=== PATIENT | female | born 1970 | race Caucasian/White ===

== ENCOUNTER 2016-09-21 09:38 | Emergency (ER) | payer OTHER ==
[~2016-09-21] VITALS: Wt 100.0 kg
[~2016-09-21 09:38] MED LIST: ALBU18HF INHALATION; ASP81 PO; AZIT250T94 PO; CITA20TA6 PO; CYCL-319 PO; GLIM4TAB PO; HYD25 PO; IBUP-1542 PO; LORA5SOL PO; METF500T PO; METO-53 PO; NIT4 SL; NPH,100V SC; OMEG-135 PO; OMEP20CA16 PO; PROM5SYR2 PO; ZOC20 PO
[2016-09-21 10:28] LABS: BASOPHIL # 0.1 10^3/ul (0.0-0.1); BASOPHILS % 0.7 % (0.0-2.0); EOSINOPHILS # 0.2 10^3/ul (0.0-0.5); EOSINOPHILS % 1.1 % (0.0-7.0); HEMATOCRIT 37.9 % (37.0-47.0); HEMOGLOBIN 12.8 g/dl (12.0-16.0); LYMPHOCYTES # 3.8 10^3/ul (0.8-2.9); LYMPHOCYTES % 24.4 % (15.0-51.0); MEAN CORPUSCULAR HGB CONC 33.8 g/dl (32.0-37.0); MEAN CORPUSCULAR VOLUME 91.6 fl (82.0-101.0); MEAN PLATELET VOLUME 11.4 fl (7.4-10.4); MONOCYTE # 0.8 10^3/ul (0.3-0.9); NEUTROPHIL # 10.6 10^3/ul (1.6-7.5); NEUTROPHILS % 68.8 % (39.0-77.0); PLATELET COUNT 182 10^3/UL (140-440); RED BLOOD COUNT 4.14 10^6/ul (4.20-5.40); RED CELL DISTRIBUTION WIDTH 13.8 % (11.5-14.5); UNCORRECTED WBC 15.4 10^3/ul (4.8-10.8); WHITE BLOOD COUNT 15.4 10^3/ul (4.8-10.8)
[2016-09-21 10:30] LABS: CHLORIDE 98 mmol/L (97-110); SODIUM 142 mmol/L (135-144)
[2016-09-21 10:31] LABS: POTASSIUM 4.2 mmol/L (3.5-5.1)
[2016-09-21 10:33] LABS: ANION GAP 18 (8-16); CARBON DIOXIDE 30 mmol/L (21-31); CREATININE 0.55 mg/dl (0.44-1.00); INR 0.87; PARTIAL THROMBOPLASTIN TIME 28.1 Sec (25.0-35.0); PROTIME 11.8 Sec (12.2-14.2); PT RATIO 0.9
[2016-09-21 10:34] LABS: BLOOD UREA NITROGEN 15 mg/dl (7-20); CALCIUM 9.6 mg/dl (8.4-10.2); GLUCOSE 268 mg/dl (70-220)
[2016-09-21 10:37] LABS: CONDITION 1
--- NOTE | 2016-09-21 10:43 | RADRPT ---
PROCEDURE: XR Chest. CLINICAL INDICATION: chest pain TECHNIQUE: Single frontal view of the chest was obtained COMPARISON: 05/23/2016 FINDINGS: The heart and mediastinum are within normal limits. The lungs are clear. There is no pleural effusion or pneumothorax. RPTAT: AA IMPRESSION: No acute disease. .Olegario Martini MD, MD Date Time Electronically viewed and signed by .Olegario Martini MD, on 09/21/2016 10:43 .S/
[2016-09-21 10:49] LABS: TROPONIN-I < 0.012 ng/ml (0.00-0.12)
[2016-09-21] MEDS ORDERED: KETOROLAC 15 MG INJ IV STA (10:51)
[2016-09-21] MEDS ORDERED: SOD CHLORIDE 0.9% 1,000 ML IV STA (11:13)
--- NOTE | 2016-09-21 11:29 | ERD ---
ER Documentation Chief Complaint Date/Time DATE: 09/21/16 TIME: 11:27 Chief Complaint cough and congestion for the past few days intermittent fevers. HPI This is a 46-year-old female presents to the emergency room for evaluation of cough, congestion for the past 48 hours. She also states that she has had chills and body aches. The patient came to the ER today for evaluation. This patient denies taking any medication for this and denies any aggravating or relieving factors for her symptoms ROS All systems reviewed and are negative except as per history of present illness. Medications Home Meds Active Scripts Albuterol Sulfate* (Ventolin HFA*) 18 Gm Hfa.aer.ad, 2 PUFF INHALATION Q4H, #1 INHALER Prov:GENARO JARQUIN MD 05/23/16 Ibuprofen* (Motrin*) 600 Mg Tab, 600 MG PO Q6, #20 TAB Prov:GENARO JARQUIN MD 05/23/16 Loratadine* (Claritin*) 1 Mg/Ml Syrup, 5 MG PO DAILY, #1 BOTTLE Prov:PILAR RIOS NP 07/28/15 Nitroglycerin* (Nitrostat*) 0.4 Mg Tab.subl, 0.4 MG SL Q5MIN Y for CHEST PAIN, # 30 BOTTLE 3 dose max Prov:ROSITA KENDRICK 06/01/15 Aspirin (Aspirin) 81 Mg Chew, 81 MG PO DAILY for 30 Days Prov:ROSITA KENDRICK 06/01/15 Simvastatin (Simvastatin) 20 Mg Tablet, 20 MG PO HS for 30 Days Prov:ROSITA KENDRICK 06/01/15 Reported Medications Omeprazole* (Omeprazole*) 20 Mg Capsule.dr, 20 MG PO BID, CAP 07/06/14 Cyclobenzaprine Hcl* (Cyclobenzaprine Hcl*) 10 Mg Tablet, 10 MG PO TID, TAB 07/06/14 Citalopram Hydrobromide* (Citalopram Hydrobromide*) 20 Mg Tablet, 20 MG PO DAILY , TAB 07/06/14 Hydrochlorothiazide* (Hydrochlorothiazide*) 25 Mg Tab, 25 MG PO DAILY, TAB 07/06/14 Nph, Human Insulin Isophane (Humulin N) 100 Units/Ml Vial, 10 UNIT SC DAILY, VIAL 07/06/14 Metformin Hcl (Glucophage) 500 Mg Tablet, 1000 MG PO BID 10/30/13 Glimepiride* (Glimepiride*) 4 Mg Tablet, 4 MG PO BID 10/29/13 Fish Oil* (Fish Oil*) 1,000 Mg Cap, 1000 MG PO BID, CAP 10/29/13 Metoprolol (Lopressor) 50 Mg Tablet, 50 MG PO BID 10/29/13 Discontinued Scripts Promethazine HCl/Codeine (Prometh-Codein 6.25-10 mg/5 ml) 5 Ml Syrup, 5 ML PO QID for 4 Days 6 ounces Prov:GENARO JARQUIN MD 05/23/16 Azithromycin* (Zithromax*) 250 Mg Tablet, 250 MG PO .ZPACK DIRECTED, #6 TAB TAKE 500 MG (2 TABS) THE FIRST DAY THEN 250 MG (1 TAB) DAYS 2-5 Prov:GENARO JARQUIN MD 05/23/16 Allergies Allergies: Coded Allergies: No Known Allergy (Unverified , 07/09/15) PMhx/Soc History of Surgery: No Anesthesia Reaction: No Hx Neurological Disorder: No Hx Respiratory Disorders: No Hx Cardiac Disorders: No Hx Psychiatric Problems: Yes (ANXIETY, DEPRESSION) Hx Alcohol Use: Yes (OCCASIONAL) Hx Substance Use: No Hx Tobacco Use: Yes (OCCASIONAL) Smoking Status: Former smoker Physical Exam Vitals Vital Signs Date Time Temp Pulse Resp B/P Pulse Ox O2 Delivery O2 Flow Rate FiO2 09/21/16 09:43 99.8 115 20 185/110 97 Physical Exam INITIAL VITAL SIGNS: Reviewed by me GENERAL: The patient is well developed and appropriate for usual state of health in no apparent distress HEENT: Bilateral nasal congestion, pharyngeal erythema with no visible exudate, pupils equal, round, and reactive to light. EOMI. There is no scleral icterus. NECK: C-spine is soft and supple, there is no meningismus. There is no cervical lymphadenopathy. LUNGS: Clear to auscultation bilaterally. There are no rales, wheezes or rhonchi. HEART: Regular rate and rhythm, no murmurs, clicks, rubs or gallops. ABDOMEN: Soft, non-tender, non-distended. There are bowel sounds in all four quadrants. No rebound or guarding. EXTREMITIES: There is no peripheral cyanosis or edema. No focal swelling or erythema. NEUROLOGICAL: The patient moves all four extremities with 5/5 strength. Cranial nerves II - XII are intact. Normal gait. Alert and oriented SKIN: There is no apparent rash or petechiae. HEME/LYMPHATIC: There is no evidence of excessive bruising or lymphedema. PSYCHIATRIC: The patient does not appear anxious or depressed. Result Diagram: 09/21/16 1013 09/21/16 1013 Results 24 hrs Laboratory Tests Test 09/21/16 10:13 Activated Partial Thromboplast Time 28.1Sec Anion Gap 18 Basophils # 0.110^3/ul Basophils % 0.7% Blood Morphology Comment Blood Urea Nitrogen 15mg/dl Calcium Level 9.6mg/dl Carbon Dioxide Level 30mmol/L Chloride Level 98mmol/L Creatinine 0.55mg/dl Eosinophils # 0.210^3/ul Eosinophils % 1.1% Glucose Level 268mg/dl Hematocrit 37.9% Hemoglobin 12.8g/dl INR International Normalized Ratio 0.87 Lymphocytes # 3.810^3/ul Lymphocytes % 24.4% Mean Corpuscular Hemoglobin 31.0pg Mean Corpuscular Hemoglobin Concent 33.8g/dl Mean Corpuscular Volume 91.6fl Mean Platelet Volume 11.4fl Monocytes # 0.810^3/ul Monocytes % 5.0% Neutrophils # 10.610^3/ul Neutrophils % 68.8% Nucleated Red Blood Cells # 0.010^3/ul Nucleated Red Blood Cells % 0.0/100WBC Platelet Count 92323^3/UL Potassium Level 4.2mmol/L Prothrombin Time 11.8Sec Prothrombin Time Ratio 0.9 Red Blood Count 4.1410^6/ul Red Cell Distribution Width 13.8% Sodium Level 142mmol/L Troponin I < 0.012ng/ml White Blood Count 15.410^3/ul Current Medications Medications (Trade) Dose Ordered Sig/Samir Route PRN Reason Start Time Stop Time Status Last Admin Dose Admin Ketorolac Tromethamine 15 mg 15 mg ONCE STAT IV 09/21/16 10:51 09/21/16 10:52 DC 09/21/16 11:09 Sodium Chloride (NS) 1,000 ml @ 1,000 mls/hr Q1H STAT IV 09/21/16 11:13 09/21/16 12:12 09/21/16 11:17 Procedures/MDM EKG: Rate/Rhythm: [Normal Sinus Rhythm] QRS, ST, T-waves: [No changes consistent w/ acute ischemia] Impression: [No evidence of ischemia or arrhythmia] Chest X-ray 1V Interpreted by me: Soft Tissue: No acute abnormalities Bones: No acute abnormalities Mediastinum/Cardiac Silhouette/Lungs: [No acute abnormalities] This 46-year-old female presents to the emergency room for evaluation of nasal congestion, body aches, generalized weakness and a dry cough. This patient did have nasal congestion on my examination. Lab work was drawn including EKG and troponin which are normal. Chest x-ray is clear. The patient is not hypoxic, and fluids negative. She was given 1 L of fluids and 50 mg IV of Toradol. A pulmonary evaluation patient states that her body aches have resolved. She is in no acute distress and will be discharged home with a prescription for Motrin , and Robitussin for cough. Patient presents with straightforward URI symptoms. Clinical exam is not consistent with pneumonia, sepsis or significant bacterial disease. Patient is well hydrated, non-toxic and appropriate for outpatient, supportive care. Smoking Cessation Therapy: Pt. was lectured for greater than 3 minutes on the health risks of continued smoking and the benefits of cessation. Departure Diagnosis: Primary Impression: Influenza-like illness Additional Impressions: Cough Tobacco abuse counseling Tobacco abuse Condition: Stable SALEEM SUAREZ DO Sep 21, 2016 11:29
[2016-09-21] MEDS ORDERED: UDROBDM PO (11:30)
[2016-09-21] MEDS ORDERED: IBUP800T25 PO (11:30)
[2016-09-21 12:54] VITALS: BP 144/76; PULSE 88; RESP 18; TEMP 98.6
== END 2016-09-21 12:55 | disposition home or self-care (01) ==
LOC: E/R 09:38
DX: R05 Cough (principal); R09.81 Nasal congestion; R50.9 Fever, unspecified; F17.200 Nicotine dependence, unspecified, uncomplicated; I10 Essential (primary) hypertension; E11.9 Type 2 diabetes mellitus without complications; R07.9 Chest pain, unspecified; Z71.6 Tobacco abuse counseling; Z79.82 Long term (current) use of aspirin; Z79.4 Long term (current) use of insulin
CPT/HCPCS: 36415; 71010; 80048; 84484; 85025; 85610; 85730; 87400; 96374; J1885; J7030; Z7502; 93005

== ENCOUNTER 2016-11-29 16:52 | Emergency (ER) | payer OTHER ==
[~2016-11-29] VITALS: Wt 100.0 kg
[~2016-11-29 16:52] MED LIST changes: -ASP81 PO; +ASPI81TA3 PO; -AZIT250T94 PO; +IBUP800T25 PO; -PROM5SYR2 PO; +UDROBDM PO
[2016-11-29] MEDS ORDERED: ONDANSETRON 4 MG INJ IV STA (17:58)
[2016-11-29] MEDS ORDERED: KETOROLAC 30 MG INJ IV STA (17:58)
[2016-11-29 18:18] LABS: ADD SCAN DIFF NO
[2016-11-29 18:23] LABS: HEMATOCRIT 38.2 % (37.0-47.0); HEMOGLOBIN 12.7 g/dl (12.0-16.0); MEAN CORPUSCULAR HEMOGLOBIN 30.7 pg (29.0-33.0); MEAN CORPUSCULAR HGB CONC 33.2 g/dl (32.0-37.0); MEAN CORPUSCULAR VOLUME 92.3 fl (82.0-101.0); MEAN PLATELET VOLUME 11.6 fl (7.4-10.4); PLATELET COUNT 241 10^3/UL (140-415); RED BLOOD COUNT 4.14 10^6/ul (4.20-5.40); RED CELL DISTRIBUTION WIDTH 13.3 % (11.5-14.5); WHITE BLOOD COUNT 16.7 10^3/ul (4.8-10.8)
[2016-11-29 18:26] LABS: ADD UMIC YES; URINE BILIRUBIN (Dip) NEGATIVE (NEGATIVE); URINE BLOOD (Dip) 3+ (NEGATIVE); URINE COLOR YELLOW (YELLOW); URINE GLUCOSE (Dip) NEGATIVE (NEGATIVE); URINE KETONES (Dip) NEGATIVE (NEGATIVE); URINE LEUKOCYTE ESTERASE (Dip) 3+ (NEGATIVE); URINE NITRITE (Dip) POSITIVE (NEGATIVE); URINE TOTAL PROTEIN (Dip) 2+ (NEGATIVE); URINE UROBILINOGEN (Dip) 0.2 E.U./dL (0.1-1.0)
--- NOTE | 2016-11-29 18:29 | ERD ---
ER Documentation Chief Complaint Date/Time DATE: 11/29/16 TIME: 18:22 Chief Complaint COUGH AND CONGESTION AND RIGHT EAR PAIN AND SORE THROAT FOR FEW DAYS HPI This pleasant 46-year-old female presents to emergency department today with right upper abdominal pain radiating to her back, fever, cough, sore throat and otalgia. Cough is nonproductive, patient is able to eat and drink without deficit reports pain with swallowing, and postnasal drip. Patient reports symptoms have been present for 3 days. Patient is a diabetic, with hypertension , and gastroesophageal reflux disease. Patient states she is taking all routine medication as prescribed, denies chest pain, palpitations, shortness of breath, or dizziness. Patient denies dysuria, constipation, or diarrhea. ROS All systems reviewed and are negative except as per history of present illness. Medications Home Meds Active Scripts Cephalexin* (Keflex*) 500 Mg Capsule, 500 MG PO TID for 10 Days, CAP Prov:JOCY,JESUS 11/29/16 Ondansetron (Ondansetron Odt) 4 Mg Tab.rapdis, 4 MG PO Q6H Y for NAUSEA AND/OR VOMITING, #10 TAB Prov:JOCY,JESUS 11/29/16 Ibuprofen* (Motrin*) 600 Mg Tab, 600 MG PO Q6H Y for PAIN AND OR ELEVATED TEMP, #30 TAB Prov:OJCY,JESUS 11/29/16 Guaifenesin-Dextromethorphan* (Robitussin* DM) 100MG/10MG/5ML Syrup, 10 ML PO Q6H Y for COUGH, #30 ML Prov:SALEEM SUAREZ DO 09/21/16 Ibuprofen* (Motrin*) 800 Mg Tab, 800 MG PO Q6H Y for PAIN AND OR ELEVATED TEMP, #30 TAB Prov:SALEEM SUAREZ DO 09/21/16 Albuterol Sulfate* (Ventolin HFA*) 18 Gm Hfa.aer.ad, 2 PUFF INHALATION Q4H, #1 INHALER Prov:GENARO JARQUIN MD 05/23/16 Ibuprofen* (Motrin*) 600 Mg Tab, 600 MG PO Q6, #20 TAB Prov:GENARO JARQUIN MD 05/23/16 Loratadine* (Claritin*) 1 Mg/Ml Syrup, 5 MG PO DAILY, #1 BOTTLE Prov:PILAR RIOS WHEAT WASHER 07/28/15 Nitroglycerin* (Nitrostat*) 0.4 Mg Tab.subl, 0.4 MG SL Q5MIN Y for CHEST PAIN, # 30 BOTTLE 3 dose max Prov:GWEN KENDRICKNELL 06/01/15 Aspirin (Aspirin) 81 Mg Chew, 81 MG PO DAILY for 30 Days Prov:ROSITA KENDRICK 06/01/15 Simvastatin (Simvastatin) 20 Mg Tablet, 20 MG PO HS for 30 Days Prov:TITOKIPGWEN GuerraROSITA 06/01/15 Reported Medications Omeprazole* (Omeprazole*) 20 Mg Capsule.dr, 20 MG PO BID, CAP 07/06/14 Cyclobenzaprine Hcl* (Cyclobenzaprine Hcl*) 10 Mg Tablet, 10 MG PO TID, TAB 07/06/14 Citalopram Hydrobromide* (Citalopram Hydrobromide*) 20 Mg Tablet, 20 MG PO DAILY , TAB 07/06/14 Hydrochlorothiazide* (Hydrochlorothiazide*) 25 Mg Tab, 25 MG PO DAILY, TAB 07/06/14 Nph, Human Insulin Isophane (Humulin N) 100 Units/Ml Vial, 10 UNIT SC DAILY, VIAL 07/06/14 Metformin Hcl (Glucophage) 500 Mg Tablet, 1000 MG PO BID 10/30/13 Glimepiride* (Glimepiride*) 4 Mg Tablet, 4 MG PO BID 10/29/13 Fish Oil* (Fish Oil*) 1,000 Mg Cap, 1000 MG PO BID, CAP 10/29/13 Metoprolol (Lopressor) 50 Mg Tablet, 50 MG PO BID 10/29/13 Allergies Allergies: Coded Allergies: No Known Allergy (Unverified , 07/09/15) PMhx/Soc History of Surgery: No Anesthesia Reaction: No Hx Neurological Disorder: No Hx Respiratory Disorders: No Hx Cardiac Disorders: No Hx Psychiatric Problems: No Hx Miscellaneous Medical Probl: No Hx Alcohol Use: No Hx Substance Use: No Hx Tobacco Use: No Smoking Status: Never smoker Physical Exam Vitals Vital Signs Date Time Temp Pulse Resp B/P Pulse Ox O2 Delivery O2 Flow Rate FiO2 11/29/16 22:01 97.7 98 18 117/64 96 Room Air 11/29/16 17:08 100.9 105 20 128/68 96 Vitals stable, nursing notes reviewed Physical Exam Const: Patient appears sick, lips are pale, patient continues to hold her right upper quadrant. Head: Atraumatic Eyes: Normal Conjunctiva no pallor or jaundice, PERRLA ENT: Right tympanic membrane is retracted, left tympanic membrane is retracted, erythemic, nasal mucosa moist, terminates +1, no maxillary or frontal sinus tenderness, pharynx is pink, tongue is pasty, mucous membranes are moist, uvula rises and falls with pronation. Neck: Full range of motion..~ No meningismus. No adenopathy Resp: Chest rises and falls with pronation clear to auscultation bilaterally with diminished bases no rales wheezes or rhonchi Cardio: Regular rate and rhythm, no murmurs Abd: Obese abdomen, Moreno's sign positive. Skin: Back: Right flank pain Ext: a Neur: Awake and alert Psych: Normal Mood and Affect Result Diagram: 11/29/16180911/29/161809 Results 24 hrs Laboratory Tests Test 11/29/16 18:10 White Blood Count 16.710^3/ul Red Blood Count 4.1410^6/ul Hemoglobin 12.7g/dl Hematocrit 38.2% Mean Corpuscular Volume 92.3fl Mean Corpuscular Hemoglobin 30.7pg Mean Corpuscular Hemoglobin Concent 33.2g/dl Red Cell Distribution Width 13.3% Platelet Count 15141^3/UL Mean Platelet Volume 11.6fl Neutrophils % 67.0% Band Neutrophils % 2.0% Lymphocytes % 21.0% Reactive Lymphocytes % 5.0% Monocytes % 4.0% Eosinophils % 1.0% Neutrophils # 11.210^3/ul Lymphocytes # 3.510^3/ul Monocytes # 0.710^3/ul Eosinophils # 0.210^3/ul Urine Color YELLOW Urine Clarity CLOUDY Urine pH 6.0 Urine Specific [place] 1.010 Urine Ketones NEGATIVE Urine Nitrite POSITIVE Urine Bilirubin NEGATIVE Urine Urobilinogen 0.2 E.U./dL Urine Leukocyte Esterase 3+ Urine Microscopic RBC 10-25/HPF Urine Microscopic WBC >200/HPF Urine Squamous Epithelial Cells MANY Urine Bacteria MANY Urine Hemoglobin 3+ Urine Glucose NEGATIVE% Urine Total Protein 2+ Sodium Level 134mmol/L Potassium Level 4.0mmol/L Chloride Level 93mmol/L Carbon Dioxide Level 30mmol/L Anion Gap 15 Blood Urea Nitrogen 23mg/dl Creatinine 0.85mg/dl Glucose Level 139mg/dl Calcium Level 9.9mg/dl Total Bilirubin 0.2mg/dl Direct Bilirubin 0.00mg/dl Indirect Bilirubin 0.2mg/dl Aspartate Amino Transf (AST/SGOT) 28IU/L Alanine Aminotransferase (ALT/SGPT) 67IU/L Alkaline Phosphatase 117IU/L Total Protein 8.6g/dl Albumin 4.6g/dl Globulin 4.00g/dl Albumin/Globulin Ratio 1.15 Lipase 49U/L Current Medications Medications (Trade) Dose Ordered Sig/Samir Route PRN Reason Start Time Stop Time Status Last Admin Dose Admin Ondansetron HCl (Zofran Inj) 4 mg ONCE STAT IV 11/29/16 17:58 11/29/16 18:03 DC 11/29/16 18:13 Ketorolac Tromethamine 15 mg 15 mg ONCE STAT IV 11/29/16 17:58 11/29/16 18:03 DC 11/29/16 18:13 Ceftriaxone Sodium (Rocephin) 50 ml @ 100 mls/hr ONCE ONCE IVPB 11/29/16 21:30 11/29/16 21:59 DC 11/29/16 21:18 Interpretation text CBC shows elevated WBCs at 16.7 no evidence of hemorrhage Chemistry shows no evidence of significant electrolyte abnormalities or renal insufficiency Liver function tests shows no evidence of acute biliary or hepatic dysfunction Lipase shows no evidence of acute pancreatitis Procedures/MDM PROCEDURE: Chest x-ray CLINICAL INDICATION: Cough and fever TECHNIQUE: Chest 2 views COMPARISON: 09/21/2016 FINDINGS: The heart is normal in size. The pulmonary vessels are normal in caliber. The lungs are clear. The costophrenic angles are sharp. The visualized bony thorax is unremarkable. IMPRESSION: No acute cardiopulmonary disease. RPTAT: HH .Moustapha Ragsdale MD, Date Time Electronically viewed and signed by .Moustapha Ragsdale MD, on 11/29/2016 18:37 .W/ CC: JESUS SANDRA PROCEDURE: CT abdomen and pelvis without contrast. CLINICAL INDICATION: Abdominal pain TECHNIQUE: CT scan of the abdomen and pelvis without contrast was performed. Sagittal and coronal reformatted images were obtained from the axial source images. CTDI = 22.22 mGy; DLP = 1371.98 mGy-cm COMPARISON: None available. FINDINGS: Visualized lower thorax: The lung bases are clear of infiltrates, and intraparenchymal cyst within the lingula is noted. There is no evidence for pleural effusion. Liver, gallbladder, pancreas and spleen: There is enlarged with a maximum dimension 21 cm and diffuse low attenuation of the parenchyma is consistent with severe hepatic steatosis. Liver contour is preserved. There is no evidence for a liver mass or ductal dilatation. The gallbladder is contracted but otherwise unremarkable. No common bile duct abnormality is demonstrated. The pancreas is unremarkable. The spleen is normal in size. Adrenal glands and genitourinary system: The adrenal glands are normal bilaterally. The kidneys are normal and size, contour and attenuation with no evidence for masses, calculi or hydronephrosis. However, there is mild stranding of the right perinephric fat which raises concern for pyelonephritis, inflammatory stranding extending into the inferior right pararenal space and causing mild thickening of the anterior pararenal fascia (series 3 images 95 - 109) The ureters are unremarkable for a calculi, mild periureteric fat stranding on the right in the proximal and mid aspect is present. The urinary bladder is contracted and difficult to evaluate. An intrauterine device is in good position within the endometrial cavity, the uterus and adnexa are otherwise unremarkable. Gastrointestinal system: The stomach is normal in caliber with no abnormality of significance. The small bowel is normal in caliber with no ileus, obstruction or wall thickening. The appendix and surrounding fat are within the limits of normal. The colon shows no evidence for wall thickening or acute abnormality. There is no evidence for colitis or diverticulitis. Peritoneum, retroperitoneum, lymph nodes and vessels: The abdominal aorta is normal in caliber. There is trace aortic and common iliac atherosclerotic calcification. The inferior vena cava is unremarkable. There is no evidence for adenopathy or mass. There is no ascites. No pneumoperitoneum is present Osseous structures and musculoskeletal findings: There is no fracture, lytic or blastic lesion. No muscular abnormality or soft tissue pathology is present. RPTAT:HJJR IMPRESSION: 1. Inflammatory stranding of the right perirenal and periureteric fat raises concern for underlying urinary tract infection, likely pyelonephritis and ureteritis for which correlation to urinalysis if not already performed is recommended. 2. Urinary bladder is contracted and difficult to evaluate. 3. No evidence of urinary tract calculi or hydronephrosis. 4. Hepatomegaly hepatic steatosis. 5. Intrauterine device in good position. 6. Trace atherosclerotic calcification of the aorta and common iliac arteries. Physician Bon Date Time Electronically viewed and signed by Physician Bon on 11/29/2016 19:57 JR/ CC: JESUS SANDRA This 46-year-old female presents to emergency department with right upper abdominal pain radiating to her back, fever, cough, sore throat and otalgia patient reports symptoms 3 days. Cholecystitis, cholelithiasis, biliary colic , pancreatitis, pyelonephritis and pneumonia all suspected at this time. WBCs are elevated indicating infection, chest x-ray is unremarkable for further consolidation or infiltrate, CAT scan shows lung bases are clear, l there is a large dimension 21 cm of diffuse low attenuation of the parametria considered with severe hepatic stenosis, liver contours are preserved, there are no evidence of liver mass or ductal dilation, gallbladder is contracted but otherwise unremarkable, no bile duct abnormality is demonstrated. Pancreas is unremarkable and spleen has normal shape and size. Adrenal glands are bilaterally normal, inflammatory stranding of the right pararenal and periureteral fat raises concern for underlying urinary tract infection likely pyelonephritis urethritis for which correlation to urinalysis should be performed. Urinalysis positive for leukocytosis, and nitrates. Patient is treated for pain with Toradol, IV Rocephin and Zofran provided in emergency department. I feel patient can be followed in the outpatient setting with Keflex, Zofran and analgesia, follow-up with primary care physician. I feel the patient is stable for discharge at this time. I have discussed results, examination findings, the treatment plan with the patient and family present prior to discharge. Indications for emergent reevaluation (fever chills pain worsening, nausea vomiting not responding to medications.), side effects of medication were also discussed. All questions were answered. Patient verbalizes understanding and agrees with plan of care. Departure Diagnosis: Primary Impression: Pyelonephritis Condition: Good JESUS SANDRA Nov 29, 2016 18:29
[2016-11-29 18:35] LABS: ALBUMIN 4.6 g/dl (3.3-4.9)
[2016-11-29 18:37] LABS: BILIRUBIN,INDIRECT 0.2 mg/dl (0-1.1); BILIRUBIN,TOTAL 0.2 mg/dl (0.2-1.3); CREATININE 0.85 mg/dl (0.44-1.00)
--- NOTE | 2016-11-29 18:37 | RADRPT ---
PROCEDURE: Chest x-ray CLINICAL INDICATION: Cough and fever TECHNIQUE: Chest 2 views COMPARISON: 09/21/2016 FINDINGS: The heart is normal in size. The pulmonary vessels are normal in caliber. The lungs are clear. Th e costophrenic angles are sharp. The visualized bony thorax is unremarkable. IMPRESSION: No acute cardiopulmonary disease. RPTAT: HH .Moustapha Ragsdale MD, Date Time Electronically viewed and signed by .Moustapha Ragsdale MD, MD on 11/29/2016 18:37 .W/
[2016-11-29 18:38] LABS: ALBUMIN/GLOBULIN RATIO 1.15; CALCIUM 9.9 mg/dl (8.4-10.2); TOTAL PROTEIN 8.6 g/dl (6.1-8.1)
[2016-11-29 18:59] LABS: BACTERIA,URINE MANY; SQUAMOUS EPITHELIAL CELL,UR MANY
--- NOTE | 2016-11-29 19:57 | RADRPT ---
PROCEDURE: CT abdomen and pelvis without contrast. CLINICAL INDICATION: Abdominal pain TECHNIQUE: CT scan of the abdomen and pelvis without contrast was performed. Sagittal and coronal reformatted images were obtained from the axial source images. CTDI = 22.22 mGy; DLP = 1371.98 mGy- cm COMPARISON: None available. FINDINGS: Visualized lower thorax: The lung bases are clear of infiltrates, and intraparenchymal cyst within the lingula is noted. There is no evidence for pleural effusion. Liver, gallbladder, pancreas and spleen: There is enlarged with a maximum dimension 21 cm and diffu se low attenuation of the parenchyma is consistent with severe hepatic steatosis. Liver contour is preserved. There is no evidence for a liver mass or ductal dilatation. The gallbladder is contract ed but otherwise unremarkable. No common bile duct abnormality is demonstrated. The pancreas is un remarkable. The spleen is normal in size. Adrenal glands and genitourinary system: The adrenal glands are normal bilaterally. The kidneys are normal and size, contour and attenuation with no evidence for masses, calculi or hydronephrosis. Ho wever, there is mild stranding of the right perinephric fat which raises concern for pyelonephritis, inflammatory stranding extending into the inferior right pararenal space and causing mild thickenin g of the anterior pararenal fascia (series 3 images 95 - 109) The ureters are unremarkable for a madhavi culi, mild periureteric fat stranding on the right in the proximal and mid aspect is present. The ur inary bladder is contracted and difficult to evaluate. An intrauterine device is in good position w ithin the endometrial cavity, the uterus and adnexa are otherwise unremarkable. Gastrointestinal system: The stomach is normal in caliber with no abnormality of significance. The small bowel is normal in caliber with no ileus, obstruction or wall thickening. The appendix and s urrounding fat are within the limits of normal. The colon shows no evidence for wall thickening or acute abnormality. There is no evidence for colitis or diverticulitis. Peritoneum, retroperitoneum, lymph nodes and vessels: The abdominal aorta is normal in caliber. The re is trace aortic and common iliac atherosclerotic calcification. The inferior vena cava is unrema rkable. There is no evidence for adenopathy or mass. There is no ascites. No pneumoperitoneum is p resent Osseous structures and musculoskeletal findings: There is no fracture, lytic or blastic lesion. No muscular abnormality or soft tissue pathology is present. RPTAT:HJJR IMPRESSION: 1. Inflammatory stranding of the right perirenal and periureteric fat raises concern for underlying urinary tract infection, likely pyelonephritis and ureteritis for which correlation to urinalysis i f not already performed is recommended. 2. Urinary bladder is contracted and difficult to evaluate. 3. No evidence of urinary tract calculi or hydronephrosis. 4. Hepatomegaly hepatic steatosis. 5. Intrauterine device in good position. 6. Trace atherosclerotic calcification of the aorta and common iliac arteries. Physician Bon Date Time Electronically viewed and signed by Physician Bon on 11/29/2016 19:57 JR/
[2016-11-29 20:13] LABS: EOSINOPHILS # 0.2 10^3/ul (0.0-0.5); LYMPHOCYTES # 3.5 10^3/ul (0.8-2.9); MONOCYTE # 0.7 10^3/ul (0.3-0.9); NEUTROPHIL # 11.2 10^3/ul (1.6-7.5)
[2016-11-29] MEDS ORDERED: CEFTRIAXONE 1 GM/50 ML (PMX) 50 ML IVPB ONE (21:30)
[2016-11-29] MEDS ORDERED: CEPH-443 PO ×2 (21:46→21:48)
[2016-11-29] MEDS ORDERED: IBUP-1542 PO (21:46)
[2016-11-29] MEDS ORDERED: ONDA4TAB14 PO (21:47)
[2016-11-29 22:01] VITALS: BP 117/64; PULSE 98; RESP 18; TEMP 97.7
== END 2016-11-29 22:01 | disposition home or self-care (01) ==
LOC: FTE 16:52
DX: N12 Tubulo-interstitial nephritis, not specified as acute or chronic (principal); E11.9 Type 2 diabetes mellitus without complications; I10 Essential (primary) hypertension; Z79.82 Long term (current) use of aspirin; Z79.84 Long term (current) use of oral hypoglycemic drugs
CPT/HCPCS: 71020; 74176; 80053; 81001; 81003; 83690; 85025; J0696; J1885; J2405; 36415; 96374; 96375

== ENCOUNTER 2016-12-01 22:13 | Emergency (ER) | payer OTHER ==
[~2016-12-01] VITALS: Ht 157.5 cm; Wt 100.0 kg
[~2016-12-01 22:13] MED LIST changes: +CEPH-443 PO; +ONDA4TAB14 PO
[2016-12-01 22:16] VITALS: Ht 157.5 cm; Wt 100.0 kg
[2016-12-02] MEDS ORDERED: KETOROLAC 30 MG INJ IM STA (00:41)
[2016-12-02] MEDS ORDERED: OXYC-279 PO (00:43)
--- NOTE | 2016-12-02 00:45 | ERD ---
ER Documentation Chief Complaint Date/Time DATE: 12/02/16 TIME: 00:44 Chief Complaint hypertension w/ headache today HPI 38-year-old woman complains of headache 2 days of gradual onset. She was diagnosed with urinary tract infection about 2 days ago and has had a day and a half of cephalexin therapy. She states her initial symptoms were dysuria and suprapubic abdominal pain. She denies fevers or chills, no vomiting or diarrhea , no slurred speech, no chest pain or shortness of breath. She states her dysuria has improved with cephalexin therapy. ROS All systems reviewed and are negative except as per history of present illness. Medications Home Meds Active Scripts Oxycodone HCl/Acetaminophen (Percocet 5-325 mg Tablet) 1 Each Tablet, 1 EACH PO TID for PAIN LEVEL 6-10, #9 TAB Prov:IGNACIA VASQUEZ MD 12/02/16 Cephalexin* (Keflex*) 500 Mg Capsule, 500 MG PO TID for 10 Days, CAP Prov:JOCY,JESUS 11/29/16 Ondansetron (Ondansetron Odt) 4 Mg Tab.rapdis, 4 MG PO Q6H Y for NAUSEA AND/OR VOMITING, #10 TAB Prov:JOCY,JESUS 11/29/16 Ibuprofen* (Motrin*) 600 Mg Tab, 600 MG PO Q6H Y for PAIN AND OR ELEVATED TEMP, #30 TAB Prov:JOCY,JESUS 11/29/16 Guaifenesin-Dextromethorphan* (Robitussin* DM) 100MG/10MG/5ML Syrup, 10 ML PO Q6H Y for COUGH, #30 ML Prov:SALEEM SUAREZ DO 09/21/16 Ibuprofen* (Motrin*) 800 Mg Tab, 800 MG PO Q6H Y for PAIN AND OR ELEVATED TEMP, #30 TAB Prov:SALEEM SUAREZ DO 09/21/16 Albuterol Sulfate* (Ventolin HFA*) 18 Gm Hfa.aer.ad, 2 PUFF INHALATION Q4H, #1 INHALER Prov:GENARO JARQUIN MD 05/23/16 Ibuprofen* (Motrin*) 600 Mg Tab, 600 MG PO Q6, #20 TAB Prov:GENARO JARQUIN MD 05/23/16 Loratadine* (Claritin*) 1 Mg/Ml Syrup, 5 MG PO DAILY, #1 BOTTLE Prov:PILAR RIOS NP 07/28/15 Nitroglycerin* (Nitrostat*) 0.4 Mg Tab.subl, 0.4 MG SL Q5MIN Y for CHEST PAIN, # 30 BOTTLE 3 dose max Prov:ROSITA KENDRICK 06/01/15 Aspirin (Aspirin) 81 Mg Chew, 81 MG PO DAILY for 30 Days Prov:ROSITA KENDRICK 06/01/15 Simvastatin (Simvastatin) 20 Mg Tablet, 20 MG PO HS for 30 Days Prov:ROSITA KENDRICK 06/01/15 Reported Medications Omeprazole* (Omeprazole*) 20 Mg Capsule.dr, 20 MG PO BID, CAP 07/06/14 Cyclobenzaprine Hcl* (Cyclobenzaprine Hcl*) 10 Mg Tablet, 10 MG PO TID, TAB 07/06/14 Citalopram Hydrobromide* (Citalopram Hydrobromide*) 20 Mg Tablet, 20 MG PO DAILY , TAB 07/06/14 Hydrochlorothiazide* (Hydrochlorothiazide*) 25 Mg Tab, 25 MG PO DAILY, TAB 07/06/14 Nph, Human Insulin Isophane (Humulin N) 100 Units/Ml Vial, 10 UNIT SC DAILY, VIAL 07/06/14 Metformin Hcl (Glucophage) 500 Mg Tablet, 1000 MG PO BID 10/30/13 Glimepiride* (Glimepiride*) 4 Mg Tablet, 4 MG PO BID 10/29/13 Fish Oil* (Fish Oil*) 1,000 Mg Cap, 1000 MG PO BID, CAP 10/29/13 Metoprolol (Lopressor) 50 Mg Tablet, 50 MG PO BID 10/29/13 Allergies Allergies: Coded Allergies: No Known Allergy (Unverified , 07/09/15) PMhx/Soc Depression, anxiety, obesity, hypertension, diabetes mellitus, gastroesophageal reflux disease History of Surgery: No Anesthesia Reaction: No Hx Neurological Disorder: No Hx Respiratory Disorders: No Hx Cardiac Disorders: No Hx Psychiatric Problems: No Hx Miscellaneous Medical Probl: No Hx Alcohol Use: No Hx Substance Use: No Hx Tobacco Use: No Smoking Status: Current every day smoker FmHx Family History: diabetes Physical Exam Vitals Vital Signs Date Time Temp Pulse Resp B/P Pulse Ox O2 Delivery O2 Flow Rate FiO2 12/01/16 22:16 98.7 105 20 189/96 100 Physical Exam GENERAL: Well-developed, well-nourished, well-hydrated, in no apparent distress , looks nontoxic in appearance HEENT: Moist mucous membranes, pink conjunctiva, no cervical spine tenderness or step-off deformities, no goiter, no jaundice or icterus, extraocular movements intact without pain. No submandibular induration, and no pharyngeal erythema NEURO: Alert and oriented 3, cranial nerves II through XII intact bilaterally, pupils equal round reactive to light, no focal deficits or facial asymmetry, sensation intact distally Strength 5/5 in upper and lower extremities bilaterally CARDIAC: Regular rate and rhythm, no murmurs rubs or gallops LUNGS: Clear bilaterally no wheezing crackles or stridor ABDOMEN: Soft nontender, no guarding, no rigidity, no rebound, no psoas sign no obturator sign. Normoactive bowel sounds SKIN: Warm and dry to touch, no abrasions, contusions, or hematomas, no lacerations, no ecchymosis, no target lesions, and without ulcers EXTREMITIES: No clubbing cyanosis or edema, calves are bilaterally symmetrical, no Homans sign, no popliteal cord sign. Distal pulses equal and bilateral PSYCH: Normal affect without agitation or irritability Results 24 hrs Laboratory Tests Test 12/02/16 00:30 Urine Color LT. YELLOW Urine Clarity CLEAR Urine pH 6.0 Urine Specific [place] <=1.005 Urine Ketones NEGATIVE Urine Nitrite NEGATIVE Urine Bilirubin NEGATIVE Urine Urobilinogen 0.2 E.U./dL Urine Leukocyte Esterase 1+ Urine Microscopic RBC 5-10/HPF Urine Microscopic WBC 10-25/HPF Urine Squamous Epithelial Cells MODERATE Urine Bacteria FEW Urine Hemoglobin 2+ Urine Glucose NEGATIVE% Urine Total Protein NEGATIVE Current Medications Medications (Trade) Dose Ordered Sig/Samir Route PRN Reason Start Time Stop Time Status Last Admin Dose Admin Ketorolac Tromethamine (Toradol) 30 mg ONCE STAT IM 12/02/16 00:41 12/02/16 00:43 DC 12/02/16 00:53 Procedures/MDM I administered Toradol 30 mg intramuscular injection with good pain control. Urine analysis is still concerning for urinary tract infection, I recommended she continue her cephalexin as prescribed for at least 2 more days and if she does not feel any improvement she said which to ciprofloxacin oral therapy which I prescribed her, although I suspect the cephalexin will work. Differential diagnoses considered, included but not limited to acute coronary syndrome, pulmonary embolism, aortic dissection, abdominal aortic aneurysm, sepsis, stroke, meningitis, encephalitis, pneumonia, appendicitis, cholecystitis , bowel obstruction, pyelonephritis, nephrolithiasis, cystitis, as well as metabolic, hematologic, and electrolyte abnormalities. As well as abscess, cellulitis, fractures, and dislocations. Patient feels much better at this time, and vital signs are normal, symptoms have improved. I did give strict instructions to return to the ED if symptoms continue or worsen, patient will otherwise follow-up with primary care physician. Patient understood instructions and agreed to plan. Departure Diagnosis: Primary Impression: Cephalgia Headache type: tension-type Headache chronicity pattern: acute headache Intractability: not intractable Qualified Code: G44.209 - Acute non intractable tension-type headache Additional Impressions: Hypertension Hypertension type: essential hypertension Qualified Code: I10 - Essential hypertension UTI (urinary tract infection) Urinary tract infection type: acute cystitis Hematuria presence: without hematuria Qualified Code: N30.00 - Acute cystitis without hematuria Condition: Good Patient Instructions: Headache, Tension IGNACIA VASQUEZ MD Dec 02, 2016 00:45
[2016-12-02 01:21] LABS: ADD UMIC YES; URINE BILIRUBIN (Dip) NEGATIVE (NEGATIVE); URINE BLOOD (Dip) 2+ (NEGATIVE); URINE COLOR LT. YELLOW (YELLOW); URINE GLUCOSE (Dip) NEGATIVE (NEGATIVE); URINE KETONES (Dip) NEGATIVE (NEGATIVE); URINE LEUKOCYTE ESTERASE (Dip) 1+ (NEGATIVE); URINE NITRITE (Dip) NEGATIVE (NEGATIVE); URINE TOTAL PROTEIN (Dip) NEGATIVE (NEGATIVE); URINE UROBILINOGEN (Dip) 0.2 E.U./dL (0.1-1.0)
[2016-12-02 01:45] LABS: BACTERIA,URINE FEW; SQUAMOUS EPITHELIAL CELL,UR MODERATE
[2016-12-02 02:20] VITALS: BP 115/73; PULSE 71; RESP 18
== END 2016-12-02 02:20 | disposition home or self-care (01) ==
LOC: E/R 22:13
DX: G44.209 Tension-type headache, unspecified, not intractable (principal); I10 Essential (primary) hypertension; N30.00 Acute cystitis without hematuria; F17.210 Nicotine dependence, cigarettes, uncomplicated; E10.9 Type 1 diabetes mellitus without complications; E66.9 Obesity, unspecified; Z79.82 Long term (current) use of aspirin; Z79.84 Long term (current) use of oral hypoglycemic drugs; Z79.4 Long term (current) use of insulin; Z68.41 Body mass index [BMI] 40.0-44.9, adult
CPT/HCPCS: 81001; 81003; J1885; 96372

== ENCOUNTER 2016-12-26 16:49 | Emergency (ER) | payer OTHER ==
[~2016-12-26] VITALS: Ht 157.5 cm; Wt 101.0 kg
[~2016-12-26 16:49] MED LIST changes: +OXYC-279 PO; +SIMV20TA2 PO; -ZOC20 PO
[2016-12-26 16:53] VITALS: Ht 157.5 cm; Wt 101.0 kg
[2016-12-26] MEDS ORDERED: morphine 4 MG/ML VIAL IV STA (17:46)
[2016-12-26] MEDS ORDERED: ONDANSETRON 4 MG INJ IV STA (17:46)
[2016-12-26] MEDS ORDERED: SOD CHLORIDE 0.9% 1,000 ML IV STA (17:46)
--- NOTE | 2016-12-26 17:46 | ERA ---
ER Documentation Chief Complaint Date/Time DATE: 12/26/16 TIME: 17:45 Chief Complaint RIGHT LOWER ABDOMINAL PAIN RADIATING TO BACK.ROY HPI The patient is a 46-year-old female, presenting to the ER because of right- sided abdominal pain, more tender in the right upper quadrant intermittently for the last 2 days, associated with nausea but no vomiting. She has similar symptoms previously, denies fever, chills, neck pain, chest pain, dyspnea, diarrhea, constipation, dysuria. She does not drink, smokes socially Past medical history: Diabetes mellitus, hypertension, dyslipidemia Past surgical history: None ROS All systems reviewed and are negative except as per history of present illness. Medications Home Meds Active Scripts Ibuprofen* (Motrin*) 600 Mg Tab, 600 MG PO Q6H Y for PAIN AND OR ELEVATED TEMP, #30 TAB Prov:AUDRA HEALY MD 12/26/16 Ciprofloxacin Hcl* (Ciprofloxacin Hcl*) 500 Mg Tablet, 500 MG PO BID for 10 Days , TAB Prov:AUDRA HEALY MD 12/26/16 Oxycodone HCl/Acetaminophen (Percocet 5-325 mg Tablet) 1 Each Tablet, 1 EACH PO TID for PAIN LEVEL 6-10, #9 TAB Prov:IGNACIA VASQUEZ MD 12/02/16 Cephalexin* (Keflex*) 500 Mg Capsule, 500 MG PO TID for 10 Days, CAP Prov:JOCY,JESUS 11/29/16 Ondansetron (Ondansetron Odt) 4 Mg Tab.rapdis, 4 MG PO Q6H Y for NAUSEA AND/OR VOMITING, #10 TAB Prov:JOCY,JESUS 11/29/16 Ibuprofen* (Motrin*) 600 Mg Tab, 600 MG PO Q6H Y for PAIN AND OR ELEVATED TEMP, #30 TAB Prov:JOCY,JESUS 11/29/16 Guaifenesin-Dextromethorphan* (Robitussin* DM) 100MG/10MG/5ML Syrup, 10 ML PO Q6H Y for COUGH, #30 ML Prov:SALEEM SUAREZ DO 09/21/16 Ibuprofen* (Motrin*) 800 Mg Tab, 800 MG PO Q6H Y for PAIN AND OR ELEVATED TEMP, #30 TAB Prov:SALEEM SUAREZ DO 09/21/16 Albuterol Sulfate* (Ventolin HFA*) 18 Gm Hfa.aer.ad, 2 PUFF INHALATION Q4H, #1 INHALER Prov:GENARO JARQUIN MD 05/23/16 Ibuprofen* (Motrin*) 600 Mg Tab, 600 MG PO Q6, #20 TAB Prov:GENARO JARQUIN MD 05/23/16 Loratadine* (Claritin*) 1 Mg/Ml Syrup, 5 MG PO DAILY, #1 BOTTLE Prov:PILAR RIOS NP 07/28/15 Nitroglycerin* (Nitrostat*) 0.4 Mg Tab.subl, 0.4 MG SL Q5MIN Y for CHEST PAIN, # 30 BOTTLE 3 dose max Prov:ROSITA KENDRICK 06/01/15 Aspirin (Aspirin) 81 Mg Chew, 81 MG PO DAILY for 30 Days Prov:ROSITA KENDRICK 06/01/15 Simvastatin (Simvastatin) 20 Mg Tablet, 20 MG PO HS for 30 Days Prov:ROSITA KENDRICK 06/01/15 Reported Medications Omeprazole* (Omeprazole*) 20 Mg Capsule.dr, 20 MG PO BID, CAP 07/06/14 Cyclobenzaprine Hcl* (Cyclobenzaprine Hcl*) 10 Mg Tablet, 10 MG PO TID, TAB 07/06/14 Citalopram Hydrobromide* (Citalopram Hydrobromide*) 20 Mg Tablet, 20 MG PO DAILY , TAB 07/06/14 Hydrochlorothiazide* (Hydrochlorothiazide*) 25 Mg Tab, 25 MG PO DAILY, TAB 07/06/14 Nph, Human Insulin Isophane (Humulin N) 100 Units/Ml Vial, 10 UNIT SC DAILY, VIAL 07/06/14 Metformin Hcl (Glucophage) 500 Mg Tablet, 1000 MG PO BID 10/30/13 Glimepiride* (Glimepiride*) 4 Mg Tablet, 4 MG PO BID 10/29/13 Fish Oil* (Fish Oil*) 1,000 Mg Cap, 1000 MG PO BID, CAP 10/29/13 Metoprolol (Lopressor) 50 Mg Tablet, 50 MG PO BID 10/29/13 Allergies Allergies: Coded Allergies: No Known Allergy (Unverified , 12/26/16) PMhx/Soc Medical and Surgical Hx: pt denies Surgical Hx History of Surgery: No Anesthesia Reaction: No Hx Neurological Disorder: No Hx Respiratory Disorders: No Hx Cardiac Disorders: Yes (HTN, DM1, HIGH CHOLESTEROL) Hx Psychiatric Problems: No Hx Miscellaneous Medical Probl: Yes (HTN, Hyperlipidemia, DM) Hx Alcohol Use: No Hx Substance Use: No Hx Tobacco Use: Yes Smoking Status: Current every day smoker Physical Exam Vitals Vital Signs Date Time Temp Pulse Resp B/P Pulse Ox O2 Delivery O2 Flow Rate FiO2 12/26/16 16:53 99.6 98 18 141/71 98 Physical Exam Const: No acute distress. Head: Atraumatic. Eyes: Normal Conjunctiva. ENT: Normal External Ears, Nose and Mouth. Neck: Full range of motion. No meningismus. Resp: Clear to auscultation bilaterally. Cardio: Regular rate and rhythm, no murmurs. Abd: Soft, non distended, normal bowel sounds, mild mild rt cva and right upper quadrant tenderness, no right lower quadrant, epigastric, CVA tenderness Skin: No petechiae or rashes. Back: No midline or flank tenderness. Ext: No cyanosis, or edema. Neur: Awake and alert. No focal deficit Psych: Normal Mood and Affect. Result Diagram: 12/26/16 1755 12/26/16 1755 Results 24 hrs Laboratory Tests Test 12/26/16 17:55 12/26/16 17:59 12/26/16 18:06 White Blood Count 15.210^3/ul Red Blood Count 3.6410^6/ul Hemoglobin 11.4g/dl Hematocrit 34.6% Mean Corpuscular Volume 95.1fl Mean Corpuscular Hemoglobin 31.3pg Mean Corpuscular Hemoglobin Concent 32.9g/dl Red Cell Distribution Width 13.5% Platelet Count 75085^3/UL Mean Platelet Volume 12.9fl Neutrophils % 64.6% Lymphocytes % 22.5% Monocytes % 11.1% Eosinophils % 1.0% Basophils % 0.3% Nucleated Red Blood Cells % 0.0/100WBC Neutrophils # 9.810^3/ul Lymphocytes # 3.410^3/ul Monocytes # 1.710^3/ul Eosinophils # 0.210^3/ul Basophils # 0.110^3/ul Nucleated Red Blood Cells # 0.010^3/ul Sodium Level 137mmol/L Potassium Level 4.3mmol/L Chloride Level 101mmol/L Carbon Dioxide Level 29mmol/L Anion Gap 11 Blood Urea Nitrogen 15mg/dl Creatinine 0.60mg/dl Glucose Level 216mg/dl Calcium Level 9.2mg/dl Total Bilirubin 0.0mg/dl Direct Bilirubin 0.00mg/dl Indirect Bilirubin 0.0mg/dl Aspartate Amino Transf (AST/SGOT) 24IU/L Alanine Aminotransferase (ALT/SGPT) 34IU/L Alkaline Phosphatase 106IU/L Total Protein 7.6g/dl Albumin 4.0g/dl Globulin 3.60g/dl Albumin/Globulin Ratio 1.11 Lipase 93U/L Urine Color LT. YELLOW Urine Clarity CLEAR Urine pH 6.0 Urine Specific [place] 1.010 Urine Ketones NEGATIVE Urine Nitrite NEGATIVE Urine Bilirubin NEGATIVE Urine Urobilinogen 0.2 E.U./dL Urine Leukocyte Esterase TRACE Urine Microscopic RBC 2-5/HPF Urine Microscopic WBC 5-10/HPF Urine Squamous Epithelial Cells FEW Urine Bacteria MODERATE Urine Hemoglobin 3+ Urine Glucose NEGATIVE% Urine Total Protein TRACE Bedside Urine pH (LAB) 6.0 Bedside Urine Protein (LAB) 1+ Bedside Urine Glucose (UA) Negative Bedside Urine Ketones (LAB) Negative Bedside Urine Blood 2+ Bedside Urine Nitrite (LAB) Negative Bedside Urine Leukocyte Esterase (L 1+ Current Medications Medications (Trade) Dose Ordered Sig/Samir Route PRN Reason Start Time Stop Time Status Last Admin Dose Admin Sodium Chloride (NS) 1,000 ml @ 1,000 mls/hr Q1H STAT IV 12/26/16 17:46 12/26/16 18:45 DC 12/26/16 18:03 Morphine Sulfate (morphine) 4 mg ONCE STAT IV 12/26/16 17:46 12/26/16 17:48 DC 12/26/16 18:02 Ondansetron HCl (Zofran Inj) 4 mg ONCE STAT IV 12/26/16 17:46 12/26/16 17:48 DC 12/26/16 18:00 Procedures/MDM MEDICAL MAKING DECISION: The patient is a 46-year-old female, presenting with acute right pyelonephritis. She was treated with 1 L normal saline for clinical dehydration, morphine 4 mg IV for pain, Zofran 4 mg IV for nausea and Cipro 500 mg p.o. for acute pyelonephritis with good response. The differential diagnoses considered include but are not limited to cholelithiasis , cholecystitis, cystitis, pancreatitis, hepatitis, gastritis, peptic ulcer disease, gastric ulcer, appendicitis, diverticulitis, cholangitis, choledocholithiasis, partial small bowel obstruction. Departure Diagnosis: Primary Impression: Pyelonephritis Additional Impression: Anemia Condition: Good Comments She was discharged with Cipro and Motrin I discussed the findings with the patient. I advised the patient to follow-up with the primary physician in about 1-2 days, sooner if needed and return if any concern. AUDRA HEALY MD Dec 26, 2016 17:46
[2016-12-26 18:05] LABS: URINE BLOOD (Dip) POC 2+ (NEGATIVE)
[2016-12-26 18:39] LABS: ADD SCAN DIFF NO
[2016-12-26 18:42] LABS: ABNORMAL IP MESSAGE 1; BASOPHIL # 0.1 10^3/ul (0.0-0.1); BASOPHILS % 0.3 % (0.0-2.0); EOSINOPHILS # 0.2 10^3/ul (0.0-0.5); HEMATOCRIT 34.6 % (37.0-47.0); HEMOGLOBIN 11.4 g/dl (12.0-16.0); LYMPHOCYTES # 3.4 10^3/ul (0.8-2.9); LYMPHOCYTES % 22.5 % (15.0-51.0); MEAN CORPUSCULAR HEMOGLOBIN 31.3 pg (29.0-33.0); MEAN CORPUSCULAR HGB CONC 32.9 g/dl (32.0-37.0); MEAN CORPUSCULAR VOLUME 95.1 fl (82.0-101.0); MEAN PLATELET VOLUME 12.9 fl (7.4-10.4); MONOCYTE # 1.7 10^3/ul (0.3-0.9); MONOCYTES % 11.1 % (0.0-11.0); NEUTROPHIL # 9.8 10^3/ul (1.6-7.5); NEUTROPHILS % 64.6 % (39.0-77.0); PLATELET COUNT 181 10^3/UL (140-415); RED BLOOD COUNT 3.64 10^6/ul (4.20-5.40); RED CELL DISTRIBUTION WIDTH 13.5 % (11.5-14.5); WHITE BLOOD COUNT 15.2 10^3/ul (4.8-10.8)
[2016-12-26 18:44] LABS: ADD UMIC YES; URINE BILIRUBIN (Dip) NEGATIVE (NEGATIVE); URINE BLOOD (Dip) 3+ (NEGATIVE); URINE COLOR LT. YELLOW (YELLOW); URINE GLUCOSE (Dip) NEGATIVE (NEGATIVE); URINE KETONES (Dip) NEGATIVE (NEGATIVE); URINE LEUKOCYTE ESTERASE (Dip) TRACE (NEGATIVE); URINE NITRITE (Dip) NEGATIVE (NEGATIVE); URINE TOTAL PROTEIN (Dip) TRACE (NEGATIVE); URINE UROBILINOGEN (Dip) 0.2 E.U./dL (0.1-1.0)
--- NOTE | 2016-12-26 18:45 | RADRPT ---
PROCEDURE: Right Upper Quadrant Ultrasound. CLINICAL INDICATION: Abdominal Pain TECHNIQUE: Multiple real-time images were acquired of the patient's right upper quadrant abdomen a nd retroperitoneum utilizing a high resolution transducer. COMPARISON: CT abdomen/pelvis from 11/29/2016 FINDINGS: The liver measures 19.9 cm, and demonstrates moderately increased echogenicity. The main portal vein is patent with proper directional flow. There is no intrahepatic biliary ductal dilatation. The ext rahepatic common bile duct measures 3 mm. The gallbladder is without stones, wall thickening, or pericholecystic fluid. The visualized pancreas is unremarkable. The right kidney measures 11.5 x 5.5 x 6.0 cm and demonstrates normal echotexture. There is no right renal calculus or hydronephrosis. The visualized abdominal aorta and IVC are grossly unremarkable. IMPRESSION: Hepatomegaly with moderate fatty infiltration. No cholelithiasis or acute cholecystitis. Normal CBD. RPTAT: EE Physician Barbara Date Time Electronically viewed and signed by Physician Barbara on 12/26/2016 18:45 /
[2016-12-26 18:57] LABS: BACTERIA,URINE MODERATE; SQUAMOUS EPITHELIAL CELL,UR FEW
[2016-12-26 19:34] LABS: ALBUMIN/GLOBULIN RATIO 1.11; CALCIUM 9.2 mg/dl (8.4-10.2); CREATININE 0.6 mg/dl (0.44-1.00); POTASSIUM 4.3 mmol/L (3.5-5.1); TOTAL PROTEIN 7.6 g/dl (6.1-8.1)
[2016-12-26] MEDS ORDERED: IBUP-1542 PO (20:15)
[2016-12-26] MEDS ORDERED: CIPR500T4 PO (20:15)
--- NOTE | 2016-12-26 20:39 | RADRPT ---
PROCEDURE: CT abdomen and pelvis without IV contrast. CLINICAL INDICATION: Abdominal pain TECHNIQUE: CT scan of the abdomen and pelvis without contrast was performed on the [employer] volumetric [address] scanner. The patient was scanned without intravenous contrast. Coronal and sagittal refo rmatted images were obtained from the axial source images. The CTDI vol is 22.98 mGy and the DLP is 1243.49 mGy-cm. COMPARISON: 11/29/2016 FINDINGS: CT abdomen: The lung bases are clear. The heart size is not enlarged and is without pericardial thickening or e ffusion. The liver is without focal mass or intrahepatic biliary dilatation. The liver is again noted to be e nlarged measuring 21.5 cm in size with fatty infiltration. The spleen is normal in size and homogene ous in density. The stomach is grossly unremarkable. The pancreas as visualized is normal. The ga llbladder and biliary tree are unremarkable and there is no evidence for common bile duct dilatation . The adrenal glands are symmetric and normal. The kidneys are normal in size. Right perinephric soft tissue stranding is once again seen. Mild prominence of the right collecting system is noted. No obstructing calculus is identified. No renal calculus or obstructive uropathy or mass lesion is seen. The aorta is of normal in caliber. There is no retroperitoneal lymphadenopathy. The maame hepatis region is clear. The large bowel is stool-filled. The small and large bowel and mesentery, as visua lized, are otherwise unremarkable. The normal appendix is identified. CT pelvis: An intrauterine device is once again seen. The pelvic organs are otherwise normal. The pelvic side montano and inguinal regions are clear. No pelvic mass, lymphadenopathy, or free fluid is seen. No a cute inflammation is seen. The urinary bladder is within normal limits. The surrounding osseous structures are unremarkable. No osteolytic or osteoblastic lesion is detect ed. IMPRESSION: 1. Right perinephric soft tissue stranding with prominence of the collecting system without evidenc e of an obstructing stone. The finding may be secondary to a pass stone. Another possibility inclu rickey pyelonephritis. Correlation with urinalysis is suggested. 2. Stool filled large bowel. 3. Mild to moderate hepatomegaly with fatty infiltration of the liver again seen. RPTAT: HPNM Ramírez Avendano, Physician Date Time Electronically viewed and signed by Ramírez Avendano, Physician on 12/26/2016 20:38 /
[2016-12-26] MEDS ORDERED: KETOROLAC 30 MG INJ IV STA (20:48)
[2016-12-26 20:55] VITALS: BP 122/69; PULSE 102; RESP 20; TEMP 101.8
[2016-12-26] MEDS ORDERED: ACETAMINOPHEN 325 MG TAB PO ONE (21:00)
[2016-12-26] MEDS ORDERED: CIPROFLOXACIN 500 MG TAB PO ONE (21:00)
== END 2016-12-26 21:15 | disposition home or self-care (01) ==
LOC: FTE 16:49
DX: N12 Tubulo-interstitial nephritis, not specified as acute or chronic (principal); D64.9 Anemia, unspecified; I10 Essential (primary) hypertension; E10.9 Type 1 diabetes mellitus without complications; F17.210 Nicotine dependence, cigarettes, uncomplicated; Z79.82 Long term (current) use of aspirin; Z79.84 Long term (current) use of oral hypoglycemic drugs
CPT/HCPCS: 36415; 74176; 76705; 80053; 81001; 83690; 85025; 87086; 96374; 96375; J1885; J2270; J2405; J7030; Z7502; Z7610; 81003

== ENCOUNTER 2017-04-06 13:09 | Emergency (ER) | payer OTHER ==
[~2017-04-06] VITALS: Wt 100.0 kg
[~2017-04-06 13:09] MED LIST changes: +CIPR500T4 PO
[2017-04-06] MEDS ORDERED: ASPIRIN 325 MG TAB PO STA (13:18)
[2017-04-06 13:48] LABS: BASOPHIL # 0.1 10^3/ul (0.0-0.1); BASOPHILS % 0.4 % (0.0-2.0); EOSINOPHILS # 0.2 10^3/ul (0.0-0.5); EOSINOPHILS % 1.3 % (0.0-7.0); HEMATOCRIT 38.9 % (37.0-47.0); HEMOGLOBIN 13.1 g/dl (12.0-16.0); LYMPHOCYTES # 3.8 10^3/ul (0.8-2.9); LYMPHOCYTES % 31.6 % (15.0-51.0); MEAN CORPUSCULAR HEMOGLOBIN 31.3 pg (29.0-33.0); MEAN CORPUSCULAR HGB CONC 33.7 g/dl (32.0-37.0); MEAN CORPUSCULAR VOLUME 93.1 fl (82.0-101.0); MEAN PLATELET VOLUME 12.8 fl (7.4-10.4); MONOCYTE # 0.8 10^3/ul (0.3-0.9); MONOCYTES % 6.3 % (0.0-11.0); NEUTROPHIL # 7.2 10^3/ul (1.6-7.5); NEUTROPHILS % 60.1 % (39.0-77.0); PLATELET COUNT 207 10^3/UL (140-415); RED BLOOD COUNT 4.18 10^6/ul (4.20-5.40); RED CELL DISTRIBUTION WIDTH 13.9 % (11.5-14.5); WHITE BLOOD COUNT 11.9 10^3/ul (4.8-10.8)
--- NOTE | 2017-04-06 13:51 | RADRPT ---
PROCEDURE: XR Chest. CLINICAL INDICATION: Chest Pain. TECHNIQUE: Single frontal chest x-ray. COMPARISON: 11/29/2016 FINDINGS: The lungs are clear of acute infiltrates, edema, effusions, or masses.. The cardiomediastinal silho uette is unremarkable. The osseous structures are intact. IMPRESSION: No acute cardiopulmonary disease. RPTAT: QQ .Tyree Dimas MD, Date Time Electronically viewed and signed by .Tyree Dimas MD, on 04/06/2017 13:51 .L/
[2017-04-06 14:04] LABS: INR 0.94; PROTIME 12.6 Sec (12.2-14.2)
[2017-04-06 14:05] LABS: PARTIAL THROMBOPLASTIN TIME 27.2 Sec (25.0-35.0)
[2017-04-06 14:07] LABS: ANION GAP 22 (8-16); BLOOD UREA NITROGEN 18 mg/dl (7-20); CARBON DIOXIDE 21 mmol/L (21-31); CHLORIDE 103 mmol/L (97-110); CREATININE 0.61 mg/dl (0.44-1.00); GLUCOSE 198 mg/dl (70-220); POTASSIUM 3.7 mmol/L (3.5-5.1); SODIUM 142 mmol/L (135-144)
[2017-04-06 14:19] LABS: B-TYPE NATRIURETIC PEPTIDE 33 PG/ML (0-125)
[2017-04-06] MEDS ORDERED: KETOROLAC 30 MG INJ IV STA (14:19)
[2017-04-06 14:20] LABS: TROPONIN-I < 0.012 ng/ml (0.00-0.12)
[2017-04-06] MEDS ORDERED: SOD CHLORIDE 0.9% 1,000 ML IV ONE (14:30)
[2017-04-06 14:31] LABS: ADD UMIC YES; UR ASCORBIC ACID 20 mg/dL (NEGATIVE); UR BILIRUBIN (Dip) NEGATIVE (NEGATIVE); UR BLOOD (Dip) 1+ mg/dL (NEGATIVE); UR CLARITY SLIGHTLY CLOUDY (CLEAR); UR COLOR YELLOW (YELLOW); UR GLUCOSE (Dip) NEGATIVE (NEGATIVE); UR KETONES (Dip) NEGATIVE (NEGATIVE); UR LEUKOCYTE ESTERASE (Dip) NEGATIVE Leu/ul (NEGATIVE); UR NITRITE (Dip) NEGATIVE (NEGATIVE); UR RBC 2 /HPF (0-5); UR SPECIFIC GRAVITY (Dip) 1.019 (1.003-1.030); UR SQUAMOUS EPITHELIAL CELL MANY /HPF (FEW); UR TOTAL PROTEIN (Dip) NEGATIVE (NEGATIVE); UR UROBILINOGEN (Dip) NEGATIVE (NEGATIVE)
--- NOTE | 2017-04-06 14:31 | ERD ---
ER Documentation Chief Complaint Date/Time DATE: 04/06/17 TIME: 14:29 Chief Complaint CHEST PAIN AND NECK PAIN WITH HIGH SUGARS FOR THE PAST 3 DAYS. HPI This 46-year-old female presents emergency room for left-sided pressure-like chest pain is been going on for 3 days as well as pain in her bilateral upper trapezius is going all the way down her back to her lower back. States that her sugars at home have been high approximately 200. Denies any fever chills or dysuria. Has no shortness of breath or cough. ROS All systems reviewed and are negative except as per history of present illness. Medications Home Meds Active Scripts Ranitidine Hcl* (Zantac*) 150 Mg Tablet, 150 MG PO BID, #60 TAB Prov:REEDVICTORINO DO 04/06/17 Naproxen* (Naproxen*) 500 Mg Tablet, 500 MG PO BID Y for PAIN, #20 TAB Prov:REEDVICTORINO DO 04/06/17 Ibuprofen* (Motrin*) 600 Mg Tab, 600 MG PO Q6H Y for PAIN AND OR ELEVATED TEMP, #30 TAB Prov:AUDRA HEALY MD 12/26/16 Ciprofloxacin Hcl* (Ciprofloxacin Hcl*) 500 Mg Tablet, 500 MG PO BID for 10 Days , TAB Prov:AUDRA HEALY MD 12/26/16 Oxycodone HCl/Acetaminophen (Percocet 5-325 mg Tablet) 1 Each Tablet, 1 EACH PO TID for PAIN LEVEL 6-10, #9 TAB Prov:IGNACIA VASQUEZ MD 12/02/16 Cephalexin* (Keflex*) 500 Mg Capsule, 500 MG PO TID for 10 Days, CAP Prov:JOCY,JESUS 11/29/16 Ondansetron (Ondansetron Odt) 4 Mg Tab.rapdis, 4 MG PO Q6H Y for NAUSEA AND/OR VOMITING, #10 TAB Prov:JOCY,JESUS 11/29/16 Ibuprofen* (Motrin*) 600 Mg Tab, 600 MG PO Q6H Y for PAIN AND OR ELEVATED TEMP, #30 TAB Prov:JOCY,JESUS 11/29/16 Guaifenesin-Dextromethorphan* (Robitussin* DM) 100MG/10MG/5ML Syrup, 10 ML PO Q6H Y for COUGH, #30 ML Prov:SALEEM SUAREZ DO 09/21/16 Ibuprofen* (Motrin*) 800 Mg Tab, 800 MG PO Q6H Y for PAIN AND OR ELEVATED TEMP, #30 TAB Prov:SALEEM SUAREZ DO 09/21/16 Albuterol Sulfate* (Ventolin HFA*) 18 Gm Hfa.aer.ad, 2 PUFF INHALATION Q4H, #1 INHALER Prov:GENARO JARQUIN MD 05/23/16 Ibuprofen* (Motrin*) 600 Mg Tab, 600 MG PO Q6, #20 TAB Prov:GENARO JARQUIN MD 05/23/16 Loratadine* (Claritin*) 1 Mg/Ml Syrup, 5 MG PO DAILY, #1 BOTTLE Prov:PILAR RIOS NP 07/28/15 Nitroglycerin* (Nitrostat*) 0.4 Mg Tab.subl, 0.4 MG SL Q5MIN Y for CHEST PAIN, # 30 BOTTLE 3 dose max Prov:ROSITA KENDRICK 06/01/15 Aspirin (Aspirin) 81 Mg Chew, 81 MG PO DAILY for 30 Days Prov:ROSITA KENDRICK 06/01/15 Simvastatin (Simvastatin) 20 Mg Tablet, 20 MG PO HS for 30 Days Prov:ROSITA KENDRICK 06/01/15 Reported Medications Omeprazole* (Omeprazole*) 20 Mg Capsule.dr, 20 MG PO BID, CAP 07/06/14 Cyclobenzaprine Hcl* (Cyclobenzaprine Hcl*) 10 Mg Tablet, 10 MG PO TID, TAB 07/06/14 Citalopram Hydrobromide* (Citalopram Hydrobromide*) 20 Mg Tablet, 20 MG PO DAILY , TAB 07/06/14 Hydrochlorothiazide* (Hydrochlorothiazide*) 25 Mg Tab, 25 MG PO DAILY, TAB 07/06/14 Nph, Human Insulin Isophane (Humulin N) 100 Units/Ml Vial, 10 UNIT SC DAILY, VIAL 07/06/14 Metformin Hcl (Glucophage) 500 Mg Tablet, 1000 MG PO BID 10/30/13 Glimepiride* (Glimepiride*) 4 Mg Tablet, 4 MG PO BID 10/29/13 Fish Oil* (Fish Oil*) 1,000 Mg Cap, 1000 MG PO BID, CAP 10/29/13 Metoprolol (Lopressor) 50 Mg Tablet, 50 MG PO BID 10/29/13 Allergies Allergies: Coded Allergies: No Known Allergy (Unverified , 12/26/16) PMhx/Soc History of Surgery: No Anesthesia Reaction: No Hx Neurological Disorder: No Hx Respiratory Disorders: No Hx Cardiac Disorders: Yes (HTN, DM1, HIGH CHOLESTEROL) Hx Psychiatric Problems: No Hx Miscellaneous Medical Probl: Yes (HTN, Hyperlipidemia, DM) Hx Alcohol Use: No Hx Substance Use: No Hx Tobacco Use: Yes Smoking Status: Never smoker Physical Exam Vitals Vital Signs Date Time Temp Pulse Resp B/P Pulse Ox O2 Delivery O2 Flow Rate FiO2 04/06/17 13:42 Nasal Cannula 2 04/06/17 13:12 98.0 74 20 138/88 98 Physical Exam Const: [] No distress Head: Atraumatic Eyes: Normal Conjunctiva ENT: Normal External Ears, Nose and Mouth. Neck: Full range of motion..~ No meningismus. Resp: Clear to auscultation bilaterally Cardio: Regular rate and rhythm, no murmurs Abd: Soft, non tender, non distended. Normal bowel sounds Skin: No petechiae or rashes Back: No midline or flank tenderness Ext: No cyanosis, or edema Neur: Awake and alert and oriented 3, no focal deficits Psych: Normal Mood and Affect Result Diagram: 04/06/17 1320 04/06/17 1320 Results 24 hrs Laboratory Tests Test 04/06/17 13:20 04/06/17 14:00 White Blood Count 11.910^3/ul Red Blood Count 4.1810^6/ul Hemoglobin 13.1g/dl Hematocrit 38.9% Mean Corpuscular Volume 93.1fl Mean Corpuscular Hemoglobin 31.3pg Mean Corpuscular Hemoglobin Concent 33.7g/dl Red Cell Distribution Width 13.9% Platelet Count 18842^3/UL Mean Platelet Volume 12.8fl Neutrophils % 60.1% Lymphocytes % 31.6% Monocytes % 6.3% Eosinophils % 1.3% Basophils % 0.4% Nucleated Red Blood Cells % 0.0/100WBC Neutrophils # 7.210^3/ul Lymphocytes # 3.810^3/ul Monocytes # 0.810^3/ul Eosinophils # 0.210^3/ul Basophils # 0.110^3/ul Nucleated Red Blood Cells # 0.010^3/ul Prothrombin Time 12.6Sec Prothrombin Time Ratio 1.0 INR International Normalized Ratio 0.94 Activated Partial Thromboplast Time 27.2Sec Sodium Level 142mmol/L Potassium Level 3.7mmol/L Chloride Level 103mmol/L Carbon Dioxide Level 21mmol/L Anion Gap 22 Blood Urea Nitrogen 18mg/dl Creatinine 0.61mg/dl Glucose Level 198mg/dl Calcium Level 10.0mg/dl Troponin I < 0.012ng/ml B-Type Natriuretic Peptide 33PG/ML Urine Color YELLOW Urine Clarity SLIGHTLY CLOUDY Urine pH 5.0 Urine Specific [place] 1.019 Urine Ketones NEGATIVEmg/dL Urine Nitrite NEGATIVEmg/dL Urine Bilirubin NEGATIVEmg/dL Urine Urobilinogen NEGATIVEmg/dL Urine Leukocyte Esterase NEGATIVELeu/ul Urine Microscopic RBC 2/HPF Urine Microscopic WBC 2/HPF Urine Squamous Epithelial Cells MANY/HPF Urine Hemoglobin 1+mg/dL Urine Glucose NEGATIVEmg/dL Urine Total Protein NEGATIVEmg/dl Current Medications Medications (Trade) Dose Ordered Sig/Samir Route PRN Reason Start Time Stop Time Status Last Admin Dose Admin Aspirin 325 mg 325 mg ONCE STAT PO 04/06/17 13:18 04/06/17 13:19 DC 04/06/17 14:14 Sodium Chloride (NS) 1,000 ml @ 1,000 mls/hr Q1H ONCE IV 04/06/17 14:30 04/06/17 15:29 04/06/17 14:14 Ketorolac Tromethamine (Toradol) 30 mg ONCE STAT IV 04/06/17 14:19 04/06/17 14:20 DC 04/06/17 14:48 Procedures/MDM Atypical chest pain subsided with naproxen. She was given 325 mg aspirin as well as a liter of fluid for reported high sugars. No signs of infection. Negative troponin after 3 days of chest pain with nonischemic EKG. Toradol also greatly improved her back soreness. I have very low suspicion for aortic dissection or pulmonary embolism. We will discharge with naproxen as well as Zantac. Primary care follow-up in 2-3 days and instructions to obtain an outpatient echocardiogram. satellite project site monitor interpretation: Normal sinus rhythm without arrhythmia Chest x-ray interpretation: See no acute process. I see no infiltrate, no pneumothorax, no pulmonary edema, no fracture EKG interpretation: Normal sinus rhythm rate of 73, normal axis, normal intervals, no ST or T-wave changes concerning for acute ischemia. Departure Diagnosis: Primary Impression: Chest pain Additional Impression: Back pain Condition: Stable VICTORINO MCBRIDE DO Apr 06, 2017 14:31
[2017-04-06] MEDS ORDERED: RANI150T9 PO (15:20)
[2017-04-06] MEDS ORDERED: NAPR-688 PO (15:20)
[2017-04-06 15:34] VITALS: BP 123/64; PULSE 76; RESP 18
== END 2017-04-06 15:34 | disposition home or self-care (01) ==
LOC: E/R 13:09
DX: R07.89 Other chest pain (principal); M54.5 Low back pain; E10.9 Type 1 diabetes mellitus without complications; I10 Essential (primary) hypertension; Z79.82 Long term (current) use of aspirin; Z79.84 Long term (current) use of oral hypoglycemic drugs
CPT/HCPCS: 36415; 71010; 80048; 81001; 83880; 84484; 85025; 85610; 85730; 93005; 96374; J1885; J7030; Z7502; Z7610

== ENCOUNTER 2017-06-22 13:09 | Inpatient (IN) | payer OTHER ==
[~2017-06-22] VITALS: Ht 157.5 cm; Wt 99.0 kg
[~2017-06-22 13:09] MED LIST changes: -HYD25 PO; +HYDR25TA6 PO; +NAPR-688 PO; +RANI150T9 PO
[2017-06-22 13:20] VITALS: Ht 157.5 cm; Wt 99.0 kg
[2017-06-22] MEDS ORDERED: morphine 4 MG/ML VIAL IV STA (13:34)
[2017-06-22] MEDS ORDERED: SOD CHLORIDE 0.9% 500 ML IV STA (13:34)
[2017-06-22] MEDS ORDERED: ONDANSETRON 4 MG INJ IV STA (13:34)
[2017-06-22 14:03] LABS: ABNORMAL IP MESSAGE 1; BASOPHIL # 0.1 10^3/ul (0.0-0.1); BASOPHILS % 0.5 % (0.0-2.0); EOSINOPHILS # 0.1 10^3/ul (0.0-0.5); EOSINOPHILS % 0.9 % (0.0-7.0); HEMATOCRIT 36.7 % (37.0-47.0); HEMOGLOBIN 12.4 g/dl (12.0-16.0); LYMPHOCYTES # 3.8 10^3/ul (0.8-2.9); LYMPHOCYTES % 36.9 % (15.0-51.0); MEAN CORPUSCULAR HEMOGLOBIN 30.8 pg (29.0-33.0); MEAN CORPUSCULAR HGB CONC 33.8 g/dl (32.0-37.0); MEAN CORPUSCULAR VOLUME 91.3 fl (82.0-101.0); MEAN PLATELET VOLUME 13.3 fl (7.4-10.4); MONOCYTE # 0.8 10^3/ul (0.3-0.9); MONOCYTES % 8.1 % (0.0-11.0); NEUTROPHIL # 5.5 10^3/ul (1.6-7.5); NEUTROPHILS % 53.2 % (39.0-77.0); PLATELET COUNT 170 10^3/UL (140-415); RED BLOOD COUNT 4.02 10^6/ul (4.20-5.40); RED CELL DISTRIBUTION WIDTH 13.5 % (11.5-14.5); WHITE BLOOD COUNT 10.2 10^3/ul (4.8-10.8)
--- NOTE | 2017-06-22 14:04 | ERD ---
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 The patient has history of hypertension hyperlipidemia diabetes, depression. The patient presents with chest pain. She describes left-sided chest pain and pressure radiating to the left shoulder and left arm for approximately 2 days. She describes occasional exertional symptoms and pleuritic component. She has a recent bus ride to [place] but denies any calf swelling or unilateral pain or history of DVT or PE. She denies any mid back pain or numbness or tingling. The pain is described as 8 out of 10 currently. ROS All systems reviewed and are negative except as per history of present illness. Medications Home Meds Active Scripts Simvastatin (Simvastatin) 20 Mg Tablet, 20 MG PO HS for 30 Days Prov:ROSITA KENDRICK 06/01/15 Reported Medications Duloxetine Hcl* (Duloxetine Hcl*) 60 Mg Capsule.dr, 60 MG PO DAILY, #30 CAP 06/22/17 Duloxetine Hcl* (Duloxetine Hcl*) 30 Mg Capsule.dr, 30 MG PO DAILY, #30 CAP 06/22/17 Trazodone Hcl* (Desyrel*) 50 Mg Tablet, 50 MG PO QHS, #30 TAB 06/22/17 Metformin Hcl* (Metformin Hcl*) 1,000 Mg Tablet, 1000 MG PO WITH BREAKFAST DINNE , #60 TAB 06/22/17 Albuterol Sulfate* (Ventolin HFA*) 18 Gm Hfa.aer.ad, 2 PUFF INHALATION Q6H, #1 INHALER 06/22/17 Losartan Potassium* (Losartan Potassium*) 50 Mg Tablet, 50 MG PO DAILY, TAB 06/22/17 Loratadine* (Loratadine*) 10 Mg Tablet, 10 MG PO DAILY, #30 TAB 06/22/17 Aspirin (Aspir-Low) 81 Mg Tablet.dr, 81 MG PO DAILY 06/22/17 Famotidine* (Famotidine*) 20 Mg Tablet, 20 MG PO BID, #60 TAB 06/22/17 Metoprolol Tartrate* (Lopressor*) 100 Mg Tablet, 100 MG PO BID, #60 TAB 06/22/17 Citalopram Hydrobromide* (Citalopram Hydrobromide*) 20 Mg Tablet, 20 MG PO DAILY , TAB 114/14 Hydrochlorothiazide* (Hydrochlorothiazide*) 25 Mg Tab, 25 MG PO DAILY, TAB 07/06/14 Nph, Human Insulin Isophane (Humulin N) 100 Units/Ml Vial, 16 UNIT SC BID, VIAL 07/06/14 Glimepiride* (Glimepiride*) 4 Mg Tablet, 4 MG PO BID 10/29/13 Discontinued Reported Medications Omeprazole* (Omeprazole*) 20 Mg Capsule.dr, 20 MG PO BID, CAP 07/06/14 Cyclobenzaprine Hcl* (Cyclobenzaprine Hcl*) 10 Mg Tablet, 10 MG PO TID, TAB 07/06/14 Metformin Hcl (Glucophage) 500 Mg Tablet, 1000 MG PO BID 10/30/13 Fish Oil* (Fish Oil*) 1,000 Mg Cap, 1000 MG PO BID, CAP 10/29/13 Metoprolol (Lopressor) 50 Mg Tablet, 50 MG PO BID 10/29/13 Discontinued Scripts Ranitidine Hcl* (Zantac*) 150 Mg Tablet, 150 MG PO BID, #60 TAB Prov:VICTORINO MCBRIDE DO 04/06/17 Naproxen* (Naproxen*) 500 Mg Tablet, 500 MG PO BID Y for PAIN, #20 TAB Prov:VICTORINO MCBRIDE DO 04/06/17 Ibuprofen* (Motrin*) 600 Mg Tab, 600 MG PO Q6H Y for PAIN AND OR ELEVATED TEMP, #30 TAB Prov:AUDRA HEALY MD 12/26/16 Ciprofloxacin Hcl* (Ciprofloxacin Hcl*) 500 Mg Tablet, 500 MG PO BID for 10 Days , TAB Prov:AUDRA HEALY MD 12/26/16 Oxycodone HCl/Acetaminophen (Percocet 5-325 mg Tablet) 1 Each Tablet, 1 EACH PO TID for PAIN LEVEL 6-10, #9 TAB Prov:IGNACIA VASQUEZ MD 12/02/16 Cephalexin* (Keflex*) 500 Mg Capsule, 500 MG PO TID for 10 Days, CAP Prov:JOCY,JESUS 11/29/16 Ondansetron (Ondansetron Odt) 4 Mg Tab.rapdis, 4 MG PO Q6H Y for NAUSEA AND/OR VOMITING, #10 TAB Prov:JOCY,JESUS 11/29/16 Ibuprofen* (Motrin*) 600 Mg Tab, 600 MG PO Q6H Y for PAIN AND OR ELEVATED TEMP, #30 TAB Prov:MILDRED SANDRAODY 11/29/16 Guaifenesin-Dextromethorphan* (Robitussin* DM) 100MG/10MG/5ML Syrup, 10 ML PO Q6H Y for COUGH, #30 ML Prov:SALEEM SUAREZ DO 09/21/16 Ibuprofen* (Motrin*) 800 Mg Tab, 800 MG PO Q6H Y for PAIN AND OR ELEVATED TEMP, #30 TAB Prov:SALEEM SUAREZ DO 09/21/16 Albuterol Sulfate* (Ventolin HFA*) 18 Gm Hfa.aer.ad, 2 PUFF INHALATION Q4H, #1 INHALER Prov:GENARO JARQUIN MD 05/23/16 Ibuprofen* (Motrin*) 600 Mg Tab, 600 MG PO Q6, #20 TAB Prov:GENARO JARQUIN MD 05/23/16 Loratadine* (Claritin*) 1 Mg/Ml Syrup, 5 MG PO DAILY, #1 BOTTLE Prov:PILAR RIOS NP 07/28/15 Nitroglycerin* (Nitrostat*) 0.4 Mg Tab.subl, 0.4 MG SL Q5MIN Y for CHEST PAIN, # 30 BOTTLE 3 dose max Prov:ROSITA KENDRICK 06/01/15 Aspirin (Aspirin) 81 Mg Chew, 81 MG PO DAILY for 30 Days Prov:ROSITA KENDRICK 06/01/15 Allergies Allergies: Coded Allergies: No Known Allergy (Unverified , 06/22/17) PMhx/Soc History of Surgery: No Anesthesia Reaction: No Hx Neurological Disorder: No Hx Respiratory Disorders: No Hx Cardiac Disorders: Yes (HTN, DM1, HIGH CHOLESTEROL) Hx Psychiatric Problems: No Hx Miscellaneous Medical Probl: Yes (HTN, Hyperlipidemia, DM) Hx Alcohol Use: No Hx Substance Use: No Hx Tobacco Use: Yes FmHx Family History: No diabetes Physical Exam Vitals Vital Signs Date Time Temp Pulse Resp B/P Pulse Ox O2 Delivery O2 Flow Rate FiO2 06/22/17 15:37 101 18 138/96 100 Nasal Cannula 2.0 06/22/17 14:00 Nasal Cannula 2 06/22/17 13:58 98.3 104 20 141/103 100 Nasal Cannula 2.0 06/22/17 13:20 97.3 133 24 194/92 98 Physical Exam General: Well developed, well nourished, no acute distress Head: Normocephalic, atraumatic. Eyes: Pupils equally reactive, EOM intact ENT: Moist mucous membranes Neck: Supple, no lymphadenopathy Respiratory: Lungs clear bilaterally, no distress Cardiovascular: RRR, no murmurs, rubs, or gallops Abdominal: Soft, non-tender, non-distended, no peritoneal signs : Deferred MSK: No edema, no unilateral swelling, 5/5 strength, no pulse deficits Neurologic: Alert and oriented, moving all extremities, normal speech, no focal weakness, no cerebellar signs Skin: No rash Psych: Anxious Result Diagram: 06/22/17 1345 06/22/17 1345 Results 24 hrs Laboratory Tests Test 06/22/17 13:45 White Blood Count 10.210^3/ul Red Blood Count 4.0210^6/ul Hemoglobin 12.4g/dl Hematocrit 36.7% Mean Corpuscular Volume 91.3fl Mean Corpuscular Hemoglobin 30.8pg Mean Corpuscular Hemoglobin Concent 33.8g/dl Red Cell Distribution Width 13.5% Platelet Count 43776^3/UL Mean Platelet Volume 13.3fl Neutrophils % 53.2% Lymphocytes % 36.9% Monocytes % 8.1% Eosinophils % 0.9% Basophils % 0.5% Nucleated Red Blood Cells % 0.0/100WBC Neutrophils # 5.510^3/ul Lymphocytes # 3.810^3/ul Monocytes # 0.810^3/ul Eosinophils # 0.110^3/ul Basophils # 0.110^3/ul Nucleated Red Blood Cells # 0.010^3/ul Prothrombin Time 12.9Sec Prothrombin Time Ratio 1.0 INR International Normalized Ratio 0.97 Activated Partial Thromboplast Time 25.9Sec Sodium Level 140mmol/L Potassium Level 3.3mmol/L Chloride Level 101mmol/L Carbon Dioxide Level 26mmol/L Anion Gap 16 Blood Urea Nitrogen 15mg/dl Creatinine 0.63mg/dl Glucose Level 356mg/dl Calcium Level 9.3mg/dl Troponin I 0.018ng/ml Current Medications Medications (Trade) Dose Ordered Sig/Samir Route PRN Reason Start Time Stop Time Status Last Admin Dose Admin Sodium Chloride (NS) 500 ml @ 500 mls/hr Q1H STAT IV 06/22/17 13:34 06/22/17 14:33 DC 06/22/17 14:18 Nitroglycerin (Nitroglycerin (Sl Tab) 0.4 Mg) 1 tab Q5M UP TO 3 DOSES PRN SL CHEST PAIN 06/22/17 14:00 06/22/17 14:30 Morphine Sulfate (morphine) 4 mg ONCE STAT IV 06/22/17 13:34 06/22/17 13:36 DC 06/22/17 14:19 Ondansetron HCl (Zofran Inj) 4 mg ONCE STAT IV 06/22/17 13:34 06/22/17 13:36 DC 06/22/17 14:18 IV Flush 10 ml 10 ml STK-MED ONCE .ROUTE 06/22/17 15:27 06/22/17 15:28 DC Sodium Chloride 100 ml @ ud STK-MED ONCE .ROUTE 06/22/17 15:27 06/22/17 15:28 DC Iohexol (Omnipaque) 100 ml @ ud STK-MED ONCE .ROUTE 06/22/17 15:27 06/22/17 15:28 DC Aspirin (Aspirin) 324 mg ONCE ONCE PO 06/22/17 16:30 06/22/17 16:31 DC 06/22/17 16:33 Ondansetron HCl (Zofran Inj) 4 mg ER BRIDGE PRN IV NAUSEA AND/OR VOMITING 06/22/17 16:30 06/23/17 16:29 Acetaminophen (Tylenol Tab) 650 mg ER BRIDGE PRN PO MILD PAIN/FEVER 06/22/17 16:30 06/23/17 16:29 Procedures/MDM EKG, MONITORS, & DIAGNOSTIC IMAGING: EKG: I reviewed and interpreted a 12-lead EKG. Rhythm: Tachycardia Ectopy: None Intervals: No abnormalities ST segments: No elevations or depressions T waves: No contiguous inversions Repeat EKG: EKG: I reviewed and interpreted a 12-lead EKG. Rhythm: Sinus tachycardia Ectopy: None Intervals: No abnormalities ST segments: Subtle ST elevation in V1 and V2 less than 1 mm, no reciprocal changes T waves: No contiguous inversions Chest x-ray: I reviewed and interpreted a 1 view of the chest Mediastinum: No enlargement Cardiac silhouette: No cardiomegaly Airspace: Clear lung barrientos bilaterally without evidence of pneumothorax Bones: No evidence of fracture CTPA: IMPRESSION: 1. Normal CT pulmonary angiogram with no evidence of pulmonary artery embolism. 2. Normal CT scan of the chest. RPTAT: QQ LAB INTERPRETATION: negative trop. MEDICAL DECISION MAKING: The patient's history, physical exam and clinical presentation is concerning for possible cardiogenic etiology and acute coronary syndrome. However, the patient is also tachycardic and hypertensive. Consider stress response. Additionally the patient had a long bus ride, consider pulmonary embolism given significant tachycardia. Moderate risk criteria met therefore CTPA ordered, d- dimer not appropriate. Lower clinical concern for dissection despite the patient's hypertension, no migratory pain, 2 days of symptoms and no mid back pain. Based on the patient's clinical exam and history and risk factors, I have a much lower clinical concern for acute aortic dissection, pneumothorax, pneumonia , cardiac tamponade HEART Score: 5 MACE Rate: 16.6% Shared Decision Making: We had a conversation regarding risk stratification, MACE rate, and the risks, benefits, alternatives of disposition planning options. Disposition planning: Strong recommendation for hospitalization and rule out of ACS ER COURSE: Aspirin held, nitroglycerin and morphine provided. Hyperglycemia noted without DKA. ASA given after negative ct pa. No e/o dissection. Pain and vs improving. Patient to be admitted for cardiac r/o. I kept the patient and/or family informed of laboratory and diagnostic imaging results throughout the emergency room course. DISPOSITION PLAN: Telemetry admission for management of chest pain to rule out acute coronary syndrome, serial enzymes, risk stratification and consideration of provocative testing CONSULTATION: Accepting care team and consultations: I discussed the current laboratory data, diagnostic imaging and emergency care provided. Admitting team: Dr. Aponte Admitting team indication: Insurance directed Departure Diagnosis: Primary Impression: Chest pain Chest pain type: unspecified Qualified Code: R07.9 - Chest pain, unspecified type Additional Impressions: Hypertensive urgency Hyperglycemia Condition: Stable KENDALL VÁZQUEZ MD Jun 22, 2017 14:04
[2017-06-22 14:06] LABS: POSITIVE DIFF @See below
[2017-06-22 14:17] LABS: INR 0.97; PROTIME 12.9 Sec (12.2-14.2)
[2017-06-22 14:18] LABS: PARTIAL THROMBOPLASTIN TIME 25.9 Sec (25.0-35.0)
[2017-06-22] MEDS: NITROGLYCERIN (SL) 0.4 MG TAB SL PRN ×3 (14:18→14:30)
[2017-06-22 14:19] LABS: CALCIUM 9.3 mg/dl (8.4-10.2); CREATININE 0.63 mg/dl (0.44-1.00); POTASSIUM 3.3 mmol/L (3.5-5.1)
[2017-06-22 14:30] LABS: TROPONIN-I 0.018 ng/ml (0.00-0.12)
--- NOTE | 2017-06-22 14:47 | RADRPT ---
PROCEDURE: XR Chest. CLINICAL INDICATION: Chest pain. TECHNIQUE: Single frontal view. COMPARISON: 04/06/2017. FINDINGS: The lungs are clear. The heart size is normal. There is no pleural effusion. There is no pneumothorax. IMPRESSION: 1. Normal chest radiograph. RPTAT: QQ .Mando English MD, MD Date Time Electronically viewed and signed by .Mando English MD, on 06/22/2017 14:46 .R/
[2017-06-22] MEDS ORDERED: METO-407 PO (14:57)
[2017-06-22] MEDS ORDERED: ASPI81TA50 PO (14:58)
[2017-06-22] MEDS ORDERED: FAMO20TA18 PO (14:58)
[2017-06-22] MEDS ORDERED: LOSA50TA6 PO (14:59)
[2017-06-22] MEDS ORDERED: LORA10TA3 PO (14:59)
[2017-06-22] MEDS ORDERED: ALBU18HF INHALATION (15:01)
[2017-06-22] MEDS ORDERED: METF1000 PO (15:01)
[2017-06-22] MEDS ORDERED: TRAZ50TA18 PO (15:02)
[2017-06-22] MEDS ORDERED: DULO60CA59 PO (15:03)
[2017-06-22] MEDS ORDERED: DULO30CA47 PO (15:03)
[2017-06-22] MEDS ORDERED: IOHEXOL 100 ML ONE (15:27)
[2017-06-22] MEDS ORDERED: SOD CHLORIDE 0.9% 100 ML ONE (15:27)
--- NOTE | 2017-06-22 16:03 | RADRPT ---
PROCEDURE: CT Pulmonary Angiogram. CLINICAL INDICATION: Chest pain and shortness of breath. TECHNIQUE: CT pulmonary angiogram and a CT scan of the chest with contrast was performed. The pat ient was scanned following the uncomplicated intravenous administration of 100 cc of Visipaque 320 i ntravenous contrast. 2-D coronal reformatted images were obtained from the axial source images. In addition, 3-D post processing was performed. Total exam DLP is 692.30 mGy-cm. CTDIvol is 49.29 mG y. One or more of the following dose reduction techniques were used: Automated exposure control, ad justment of the mA and/or kV according to patient size, use of iterative reconstruction technique. COMPARISON: Chest x-ray done earlier the same day which was normal. FINDINGS: The pulmonary arteries are normal with no filling defect or lack of enhancement to suggest pulmonary artery embolism. The lungs are clear. There is no pulmonary airspace or interstitial disease. There is no pulmonary nodule or mass lesion. There is no pneumothorax. There is no mediastinal or hilar lymphadenopathy or mass. There is no pleural effusion. There is no pericardial effusion. The thoracic aorta is normal with no aneurysm or dissection. Images through the upper abdomen demonstrate normal visualized portions of the liver, spleen, and ad renals. The osseous structures are normal with no fracture or lytic lesion. IMPRESSION: 1. Normal CT pulmonary angiogram with no evidence of pulmonary artery embolism. 2. Normal CT scan of the chest. RPTAT: QQ .Mando English MD, Date Time Electronically viewed and signed by .Mando English MD, MD on 06/22/2017 16:03 .R/
[2017-06-22] MEDS ORDERED: ONDANSETRON 4 MG INJ IV PRN ×2 (16:30→17:30)
[2017-06-22] MEDS ORDERED: ACETAMINOPHEN 325 MG TAB PO PRN (16:30)
[2017-06-22] MEDS ORDERED: ASPIRIN 81 MG TAB PO ONE (16:30)
[2017-06-22] MEDS ORDERED: NACL 0.9% 3 ML SYG IV SCH (17:30)
[2017-06-22] MEDS ORDERED: DOCUSATE SODIUM 100 MG CAP PO PRN (17:30)
[2017-06-22] MEDS ORDERED: morphine 2 MG INJ IV PRN (17:30)
[2017-06-22] MEDS ORDERED: MAGNESIUM HYDROXIDE 30ML CUP PO PRN (17:30)
--- NOTE | 2017-06-22 17:39 | HP ---
Date/Time of Note Date/Time of Note DATE: 06/22/17 TIME: 17:19 Assessment/Plan VTE Prophylaxis VTE Prophylaxis Intervention: LMWH Lines/Catheters IV Catheter Type (from Nrsg): Saline Lock Assessment/Plan Assessment/Plan 1. Chest pain rule out ACS - Patient has been experiencing intermittent pain since last night and does admit to experiencing in the past but does not remember when. Has a PCP but does not follow with market analyst - CP still present but improving - Will give nitro, morphine and O2 as needed - Trop 0.018 and will continue to trend - Cardiology consult placed for further evaluation - ECHO ordered - Aspirin, BB, statin - Checking TSH and lipid panel - CTA performed and no acute abnormalities as secondary causes of chest pain 2. Diabetes Mellitus with neuropathy - Presented with glucose of 300 and patient states her sugars usually run high - Will continue home insulin and place on ISS - A1c ordered - Holding PO Metformin and glipizide - On cymbalta 3. HTN - currently stable - continue home medications and will adjust as needed 4. HLD - On statin 5. Gastritis - On PPI 6. Obesity - Counselled about diet modification and exercise 7. Diet - Cardiac diet 8. Code Status - Full Code 9. DVT ppx - Lovenox 10. GI ppx - PPI 11. Disposition - Admit to telemetry for further cardiac workup HPI/ROS Admit Date/Time Admit Date/Time Hx of Present Illness 47 yo F with PMH HTN, obesity, HLD, DM, and GERD presented to ED c/o left sided chest pain, 10/10 but improved to 7/10 after given medication in ED, radiating to left shoulder and down left arm with associated vomiting, dizziness, and generalized body aches that has worsened since yesterday around 4-5 pm. She states the pain was intermittent and returned around 11pm. She experienced 3-4 episodes of emesis and body shakes with the pain last night. She presented today since she did not have a ride to the hospital last night. She does admit to having chest pain in the past but does not remember how long ago. She follows with a PCP but does not have a market analyst. Admits to generalized abdominal pain which she associates with vomiting but denies any headaches, nausea, shortness of breath, urinary issues, constipation or diarrhea. She states her sugars have been running high and usually on PO medications as well as insulin regime. ROS All 12 systems reviewed and pertinent positives as per HPI. All others reviewed and are negative. PMH/Family/Social Past Medical History Medical History: diabetes, GERD, high cholesterol, hypertension, hypothyroid Past Surgical History Past Surgical Hx: no surgical history Family History Significant Family History: no pertinent family hx Social History Alcohol Use: none Smoking Status: Current every day smoker Drug Use: none Exam/Review of Systems Vital Signs Vitals Vital Signs Date Time Temp Pulse Resp B/P Pulse Ox O2 Delivery O2 Flow Rate FiO2 06/22/17 15:37 101 18 138/96 100 Nasal Cannula 2.0 06/22/17 13:58 98.3 Exam Constitutional: alert, oriented, other (obese) Psych: nl mood/affect Head: atraumatic, normocephalic Eyes: EOMI, PERRL, nl sclera ENMT: mucosa pink and moist Neck: non-tender, supple, No jvd Respiratory: clear to auscultation, No crackles/rales, No diminished breath sounds, No wheezing Cardiovascular: regular rate and rhythm, No edema, No irregular rhythm, No murmurs/extra sounds, No systolic murmur Gastrointestinal: soft, tender (diffusely), No ascites, No distended, No rebound or guarding Musculoskeletal: nl extremities to inspection Extremities: No clubbing, No cyanosis, No edema 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, nl mental status, nl speech, numbness (lower extremities secondary to neuropathy) Skin: No diaphoresis, No ecchymosis Lymph: nl lymph nodes Labs Result Diagram: 06/22/17 1345 06/22/17 1345 Medications Medications All home medications reviewed Current Medications Aspirin (Halfprin) 81 mg DAILY PO ; Start 06/23/17 at 09:00; Status UNV Citalopram Hydrobromide (Celexa) 20 mg DAILY PO ; Start 06/23/17 at 09:00; Status UNV Duloxetine HCl (Cymbalta) 60 mg DAILY PO ; Start 06/23/17 at 09:00; Status UNV Famotidine (Pepcid) 20 mg BID PO ; Start 06/22/17 at 21:00; Status UNV Hydrochlorothiazide (Hydrochlorothiazide) 25 mg DAILY PO ; Start 06/23/17 at 09 :00; Status UNV Loratadine (Claritin) 10 mg DAILY PO ; Start 06/23/17 at 09:00; Status UNV Losartan Potassium (Cozaar) 50 mg DAILY PO ; Start 06/23/17 at 09:00; Status UNV Metoprolol Tartrate (Lopressor) 100 mg BID PO ; Start 06/22/17 at 21:00; Status UNV Insulin Human NPH (Humulin N) 16 unit BID SC ; Start 06/22/17 at 21:00; Status UNV Trazodone HCl (Desyrel) 50 mg QHS PO ; Start 06/22/17 at 21:00; Status UNV Miscellaneous Information 20 mg HS PO ; Start 06/22/17 at 21:00; Status UNV Procedures Procedures PROCEDURE: CT Pulmonary Angiogram. CLINICAL INDICATION: Chest pain and shortness of breath. TECHNIQUE: CT pulmonary angiogram and a CT scan of the chest with contrast was performed. The patient was scanned following the uncomplicated intravenous administration of 100 cc of Visipaque 320 intravenous contrast. 2-D coronal reformatted images were obtained from the axial source images. In addition, 3- D post processing was performed. Total exam DLP is 692.30 mGy-cm. CTDIvol is 49.29 mGy. One or more of the following dose reduction techniques were used: Automated exposure control, adjustment of the mA and/or kV according to patient size, use of iterative reconstruction technique. COMPARISON: Chest x-ray done earlier the same day which was normal. FINDINGS: The pulmonary arteries are normal with no filling defect or lack of enhancement to suggest pulmonary artery embolism. The lungs are clear. There is no pulmonary airspace or interstitial disease. There is no pulmonary nodule or mass lesion. There is no pneumothorax. There is no mediastinal or hilar lymphadenopathy or mass. There is no pleural effusion. There is no pericardial effusion. The thoracic aorta is normal with no aneurysm or dissection. Images through the upper abdomen demonstrate normal visualized portions of the liver, spleen, and adrenals. The osseous structures are normal with no fracture or lytic lesion. IMPRESSION: 1. Normal CT pulmonary angiogram with no evidence of pulmonary artery embolism. 2. Normal CT scan of the chest. PROCEDURE: XR Chest. CLINICAL INDICATION: Chest pain. TECHNIQUE: Single frontal view. COMPARISON: 04/06/2017. FINDINGS: The lungs are clear. The heart size is normal. There is no pleural effusion. There is no pneumothorax. IMPRESSION: 1. Normal chest radiograph. SAMEERA PEDRO MD Jun 22, 2017 17:31
[2017-06-22 17:43] VITALS: TEMP 98.7
[2017-06-22] MEDS: NICOTINE (7 MG/24 HR) PATCH TRANSDERM SCH (18:00)
[2017-06-22] MEDS ORDERED: POTASSIUM CHLORIDE (SR) 20 MEQ TAB PO ONE (19:45)
[2017-06-22 19:48] VITALS: PULSE 90
[2017-06-22 20:00] VITALS: PULSE 90
[2017-06-22 20:39] VITALS: BP 159/76; RESP 20
[2017-06-22] MEDS: ATORVASTATIN 10 MG TAB PO SCH (21:15)
[2017-06-22] MEDS: FAMOTIDINE 20 MG TAB PO SCH (21:16)
[2017-06-22] MEDS: METOPROLOL 100 MG TAB PO SCH (21:17)
[2017-06-22] MEDS: traZODone 50 MG TAB PO SCH (21:18)
[2017-06-22 21:30] LABS: CK-MB 2.9 ng/ml (0.0-2.4); TROPONIN-I 0.022 ng/ml (0.00-0.12)
[2017-06-22] MEDS: INSULIN ASPART [NOVOLOG] 3 ML PEN SC SCH (21:47)
[2017-06-22] MEDS: NPH, HUMAN INSULIN ISOPHANE 3ML VIAL SC SCH (21:48)
[2017-06-23] VITALS (14 sets, daily range): BP systolic 114–134; BP diastolic 62–80; PULSE 63–150; RESP 16–20
[2017-06-23] MEDS ORDERED: ACCU-CHEK XX SCH (02:00)
[2017-06-23 02:37] LABS: CK-MB 2.43 ng/ml (0.0-2.4); TROPONIN-I 0.017 ng/ml (0.00-0.12)
[2017-06-23] MEDS ORDERED: PANTOPRAZOLE (EC) 40 MG TAB PO SCH (06:00)
[2017-06-23 08:04] LABS: ABNORMAL IP MESSAGE 1; BASOPHIL # 0.1 10^3/ul (0.0-0.1); BASOPHILS % 0.6 % (0.0-2.0); EOSINOPHILS # 0.2 10^3/ul (0.0-0.5); EOSINOPHILS % 1.8 % (0.0-7.0); HEMATOCRIT 33.2 % (37.0-47.0); HEMOGLOBIN 11.2 g/dl (12.0-16.0); LYMPHOCYTES # 3.3 10^3/ul (0.8-2.9); LYMPHOCYTES % 40.1 % (15.0-51.0); MEAN CORPUSCULAR HEMOGLOBIN 31.1 pg (29.0-33.0); MEAN CORPUSCULAR HGB CONC 33.7 g/dl (32.0-37.0); MEAN CORPUSCULAR VOLUME 92.2 fl (82.0-101.0); MEAN PLATELET VOLUME 13.5 fl (7.4-10.4); MONOCYTE # 0.8 10^3/ul (0.3-0.9); MONOCYTES % 10.3 % (0.0-11.0); NEUTROPHIL # 3.8 10^3/ul (1.6-7.5); NEUTROPHILS % 46.8 % (39.0-77.0); PLATELET COUNT 150 10^3/UL (140-415); RED CELL DISTRIBUTION WIDTH 13.7 % (11.5-14.5); WHITE BLOOD COUNT 8.2 10^3/ul (4.8-10.8)
[2017-06-23 08:14] LABS: POSITIVE DIFF @See below
[2017-06-23 08:21] LABS: ALBUMIN 3.8 g/dl (3.3-4.9); CALCIUM 8.6 mg/dl (8.4-10.2); CHOL/HDL RATIO 4.7 RATIO; CREATININE 0.52 mg/dl (0.44-1.00); MAGNESIUM 1.6 mg/dl (1.7-2.5); POTASSIUM 3.3 mmol/L (3.5-5.1)
[2017-06-23 08:28] LABS: PHOSPHORUS 3.6 mg/dl (2.5-4.9)
[2017-06-23 08:51] LABS: THYROID STIMULATING HORMONE 2.1 MIU/L (0.465-4.680)
[2017-06-23] MEDS: CITALOPRAM 20 MG TAB PO SCH (08:55)
[2017-06-23] MEDS: LOSARTAN 50 MG TAB PO SCH (09:00)
[2017-06-23] MEDS: DULOXETINE 30 MG CAP DR PO SCH (09:02)
[2017-06-23] MEDS: ASPIRIN (EC) 81 MG TAB PO SCH (09:02)
[2017-06-23] MEDS: LORATADINE 10 MG TAB PO SCH (09:02)
[2017-06-23] MEDS: METOPROLOL 100 MG TAB PO SCH ×2 (09:03→21:19)
[2017-06-23] MEDS: HYDROCHLOROTHIAZIDE 25 MG TAB PO SCH (09:03)
[2017-06-23] MEDS: FAMOTIDINE 20 MG TAB PO SCH ×2 (09:03→21:19)
[2017-06-23] MEDS: ENOXAPARIN 40 MG/0.4 ML SYG SC SCH (09:11)
[2017-06-23] MEDS: INSULIN ASPART [NOVOLOG] 3 ML PEN SC SCH ×5 (09:11→21:25)
[2017-06-23] MEDS: NPH, HUMAN INSULIN ISOPHANE 3ML VIAL SC SCH (09:11)
[2017-06-23] MEDS: NICOTINE (7 MG/24 HR) PATCH TRANSDERM SCH (09:59)
[2017-06-23] MEDS: ACETAMINOPHEN 325 MG TAB PO PRN ×2 (12:34→17:41)
[2017-06-23] MEDS ORDERED: POTASSIUM CHLORIDE (SR) 20 MEQ TAB PO STA (12:53)
[2017-06-23] MEDS ORDERED: DEXTROSE 50% 50 ML SYRINGE IV PRN ×2 (13:00)
[2017-06-23] MEDS ORDERED: GLUCAGON 1 MG INJ IM PRN (13:00)
[2017-06-23] MEDS ORDERED: GLUCOSE GEL 15 GRAM TUBE PO PRN ×2 (13:00)
[2017-06-23] MEDS: INSULIN GLARGINE [LANtus] 3 ML PEN SC SCH ×2 (13:00→17:07)
[2017-06-23] MEDS ORDERED: GLUCOSE GEL 15 GRAM TUBE BUCCAL PRN (13:00)
--- NOTE | 2017-06-23 14:31 | PN ---
Date/Time of Note Date/Time of Note DATE: 06/23/17 TIME: 14:26 Assessment/Plan VTE Prophylaxis VTE Prophylaxis Intervention: heparin Lines/Catheters IV Catheter Type (from Nrs): Saline Lock Urinary Cath still in place: No Assessment/Plan Assessment/Plan 1. Chest pain rule out ACS - Chest pain has improved - Awaiting cardiology input and consultation appreciated. - Troponins mildly elevated but trending downward - ECHO ordered - Aspirin, BB, statin - LDL 54, TG 186 - CTA performed and no acute abnormalities as secondary causes of chest pain 2. Diabetes Mellitus with neuropathy - Presented with glucose of 300 and patient states her sugars usually run high - A1c 9.5 - Adjustments made to insulin regime and will consult visual educator for further assistance - Holding PO Metformin and glipizide - On cymbalta 3. HTN - currently stable - continue home medications and will adjust as needed 4. HLD - On statin 5. Gastritis - On PPI 6. Obesity - Counselled about diet modification and exercise 7. Hypokalemia - 3.3, replaced 8. Disposition - Awaiting recommendations from cardiology Subjective 24 Hr Interval Summary Free Text/Dictation Patient states chest pain has improved and has no new complaints. No acute overnight events. Exam/Review of Systems Vital Signs Vitals Vital Signs Date Time Temp Pulse Resp B/P Pulse Ox O2 Delivery O2 Flow Rate FiO2 06/23/17 12:12 66 06/23/17 12:04 98.5 16 123/74 99 Nasal Cannula 2.0 Intake and Output 06/22/17 06/22/17 06/23/17 15:00 23:00 07:00 Intake Total 400 ml Balance 400 ml Exam Constitutional: alert, oriented, obese Head: atraumatic, normocephalic Eyes: EOMI, PERRL, nl sclera ENMT: mucosa pink and moist Neck: non-tender, supple, No jvd Respiratory: clear to auscultation, No crackles/rales, No diminished breath sounds, No wheezing Cardiovascular: regular rate and rhythm, No edema, No irregular rhythm, No murmurs/extra sounds, No systolic murmur Gastrointestinal: soft, non tender, No ascites, No distended, No rebound or guarding Musculoskeletal: nl extremities to inspection Extremities: No clubbing, No cyanosis, No edema 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, nl mental status, nl speech, numbness lower extremities secondary to neuropathy Skin: No diaphoresis, No ecchymosis Lymph: nl lymph nodes Results Result Diagram: 06/23/1713 06/23/1713 Results 24 hrs Laboratory Tests Test 06/22/17 20:36 06/22/17 21:36 06/23/17 01:44 06/23/17 02:12 Creatine Kinase 161 156 Creatine Kinase Index 1.8 1.6 Creatinine Kinase MB (Mass) 2.90 H 2.43 H Troponin I 0.022 0.017 Bedside Glucose 273 H 299 H Test 06/23/17 07:13 06/23/17 08:26 06/23/17 12:03 White Blood Count 8.2 Red Blood Count 3.60 L Hemoglobin 11.2 L Hematocrit 33.2 L Mean Corpuscular Volume 92.2 Mean Corpuscular Hemoglobin 31.1 Mean Corpuscular Hemoglobin Concent 33.7 Red Cell Distribution Width 13.7 Platelet Count 150 Mean Platelet Volume 13.5 H Neutrophils % 46.8 Lymphocytes % 40.1 Monocytes % 10.3 Eosinophils % 1.8 Basophils % 0.6 Nucleated Red Blood Cells % 0.0 Neutrophils # 3.8 Lymphocytes # 3.3 H Monocytes # 0.8 Eosinophils # 0.2 Basophils # 0.1 Nucleated Red Blood Cells # 0.0 Sodium Level 141 Potassium Level 3.3 L Chloride Level 105 Carbon Dioxide Level 26 Anion Gap 13 Blood Urea Nitrogen 12 Creatinine 0.52 Glucose Level 282 H Hemoglobin A1c 9.1 H Calcium Level 8.6 Phosphorus Level 3.6 Magnesium Level 1.6 L Albumin 3.8 Triglycerides Level 186 H Cholesterol Level 115 LDL Cholesterol, Calculated 54 HDL Cholesterol 24 L Cholesterol/HDL Ratio 4.7 Thyroid Stimulating Hormone (TSH) 2.100 Bedside Glucose 308 H 306 H Medications Medications Current Medications Aspirin (Halfprin) 81 mg DAILY PO Last administered on 06/23/17 09:02; Admin Dose 81 MG; Start 06/23/17 at 09:00 Citalopram Hydrobromide (Celexa) 20 mg DAILY PO Last administered on 08:55; Admin Dose 20 MG; Start 06/23/17 at 09:00 Duloxetine HCl (Cymbalta) 60 mg DAILY PO Last administered on 06/23/17 09:02 ; Admin Dose 60 MG; Start 06/23/17 at 09:00 Famotidine (Pepcid) 20 mg BID PO Last administered on 06/23/17 09:03; Admin Dose 20 MG; Start 06/22/17 at 21:00 Hydrochlorothiazide (Hydrochlorothiazide) 25 mg DAILY PO Last administered on 06/23/17 09:03; Admin Dose 25 MG; Start 06/23/17 at 09:00 Loratadine (Claritin) 10 mg DAILY PO Last administered on 06/23/17 09:02; Admin Dose 10 MG; Start 06/23/17 at 09:00 Losartan Potassium (Cozaar) 50 mg DAILY PO Last administered on 06/23/17 09: 00; Admin Dose 50 MG; Start 06/23/17 at 09:00 Metoprolol Tartrate (Lopressor) 100 mg BID PO Last administered on 06/23/17 09:03; Admin Dose 100 MG; Start 06/22/17 at 21:00 Trazodone HCl (Desyrel) 50 mg QHS PO Last administered on 06/22/17 21:18; Admin Dose 50 MG; Start 06/22/17 at 21:00 Atorvastatin Calcium (Lipitor) 10 mg DAILY@21 PO Last administered on 21:15; Admin Dose 10 MG; Start 06/22/17 at 21:00 Ondansetron HCl (Zofran Inj) 4 mg Q6H PRN IV NAUSEA AND/OR VOMITING; Start at 17:30 Acetaminophen (Tylenol Tab) 650 mg Q6H PRN PO PAIN LEVEL 1-3 OR FEVER Last administered on 06/23/17 12:34; Admin Dose 650 MG; Start 06/22/17 at 17:30 Morphine Sulfate (morphine) 2 mg Q4H PRN IV PAIN LEVEL 7-10; Start 06/22/17 at 17:30 Docusate Sodium (Colace) 100 mg Q12H PRN PO CONSTIPATION; Start 06/22/17 at 17 :30 Magnesium Hydroxide (Milk Of Mag) 30 ml DAILY PRN PO CONSTIPATION; Start 06/22 at 17:30 Enoxaparin Sodium (Lovenox) 40 mg DAILY SC Last administered on 06/23/17 09: 11; Admin Dose 40 MG; Start 06/23/17 at 09:00 Nitroglycerin (Nitroglycerin (Sl Tab) 0.4 Mg) 1 tab Q5M PRN SL ANGINA; Start 06/22/17 at 17:30 Nicotine (Nicoderm 7 Mg/ 24 Hr) 1 patch DAILY TRANSDERM Last administered on t 09:59; Admin Dose 1 PATCH; Start 06/22/17 at 18:00 Miscellaneous Information 1 ea NOTE XX ; Start 06/23/17 at 13:00 Glucose (Glutose) 15 gm Q15M PRN PO DECREASED GLUCOSE; Start 06/23/17 at 13:00 Glucose (Glutose) 22.5 gm Q15M PRN PO DECREASED GLUCOSE; Start 06/23/17 at 13: 00 Dextrose (D50w Syringe) 25 ml Q15M PRN IV DECREASED GLUCOSE; Start 06/23/17 at 13:00 Dextrose (D50w Syringe) 50 ml Q15M PRN IV DECREASED GLUCOSE; Start 06/23/17 at 13:00 Glucagon (Glucagen) 1 mg Q15M PRN IM DECREASED GLUCOSE; Start 06/23/17 at 13: 00 Glucose (Glutose) 15 gm Q15M PRN BUCCAL DECREASED GLUCOSE; Start 06/23/17 at 13:00 Potassium Chloride (Klor-Con 20) 40 meq 1700 ONCE PO ; Start 06/23/17 at 17:00 ; Stop 06/23/17 at 17:01 Diagnostic Test (Pha) (Accu-Chek) 1 ea 02 XX ; Start 06/24/17 at 02:00 Insulin Glargine (Lantus) 25 unit DAILY@08 SC ; Start 06/23/17 at 13:00 SAMEERA PEDRO MD Jun 23, 2017 14:31
--- NOTE | 2017-06-23 15:05 | CONS ---
DATE OF ADMISSION: 06/22/2017 DATE OF CONSULTATION: 06/23/2017 REASON FOR CONSULTATION: Chest pain. HISTORY OF PRESENT ILLNESS: Mr. Sharp presented to the emergency department with a complaint of ches t pain lasting about 4 to 5 hours, worse with ambulation, now appeared suddenly and improved after r eceiving morphine in the emergency department. She does have risk factors of hyperlipidemia and taylor betes, which is uncontrolled. Currently, she is comfortable. PAST MEDICAL HISTORY: Hyperlipidemia, hypercholesterolemia, hypertension, morbid obesity. PHYSICAL EXAMINATION: GENERAL: She is in no distress. NECK: No jugular venous distention. LUNGS: Clear. CARDIAC: Regular rate and rhythm. ABDOMEN: Soft, nontender, obese. EXTREMITIES: Reveal no edema. VITAL SIGNS: Temperature 98.5, pulse 82, blood pressure 118/80. DIAGNOSTIC DATA: EKG reviewed, sinus tachycardia with nonspecific ST changes. CTA shows no evidence of pulmonary embolism: The patient did a stress test in 2013, which was unrem arkable. ASSESSMENT: Patient presented with chest pain lasting several hours. EKG shows nonspecific changes . Troponins are negative x3. Given her multiple risk factors, I will order a stress test to exclude ischemia as a cause for his s ymptoms. Dictated By: DENVER COOL/PHIL Conf#: [id number] DID#: [id number]
[2017-06-23] MEDS: NITROGLYCERIN (SL) 0.4 MG TAB SL PRN (16:57)
[2017-06-23] MEDS ORDERED: POTASSIUM CHLORIDE (SR) 20 MEQ TAB PO ONE (17:00)
[2017-06-23] MEDS: ATORVASTATIN 10 MG TAB PO SCH (21:17)
[2017-06-23] MEDS: traZODone 50 MG TAB PO SCH (21:46)
[2017-06-24] VITALS (11 sets, daily range): BP systolic 126–166; BP diastolic 62–85; PULSE 69–95; RESP 20
[2017-06-24] MEDS: ACCU-CHEK XX SCH (02:00)
[2017-06-24] MEDS: INSULIN ASPART [NOVOLOG] 3 ML PEN SC SCH ×7 (07:53→21:01)
[2017-06-24] MEDS: INSULIN GLARGINE [LANtus] 3 ML PEN SC SCH (07:53)
[2017-06-24] MEDS: NICOTINE (7 MG/24 HR) PATCH TRANSDERM SCH (08:33)
[2017-06-24 08:38] LABS: ABNORMAL IP MESSAGE 1; BASOPHIL # 0.1 10^3/ul (0.0-0.1); BASOPHILS % 0.4 % (0.0-2.0); EOSINOPHILS # 0.2 10^3/ul (0.0-0.5); EOSINOPHILS % 1.3 % (0.0-7.0); HEMATOCRIT 35.2 % (37.0-47.0); HEMOGLOBIN 11.4 g/dl (12.0-16.0); LYMPHOCYTES # 3.5 10^3/ul (0.8-2.9); LYMPHOCYTES % 26.9 % (15.0-51.0); MEAN CORPUSCULAR HEMOGLOBIN 30.2 pg (29.0-33.0); MEAN CORPUSCULAR HGB CONC 32.4 g/dl (32.0-37.0); MEAN CORPUSCULAR VOLUME 93.4 fl (82.0-101.0); MEAN PLATELET VOLUME 13.9 fl (7.4-10.4); MONOCYTE # 0.9 10^3/ul (0.3-0.9); MONOCYTES % 7.2 % (0.0-11.0); NEUTROPHIL # 8.3 10^3/ul (1.6-7.5); NEUTROPHILS % 63.8 % (39.0-77.0); PLATELET COUNT 143 10^3/UL (140-415); RED BLOOD COUNT 3.77 10^6/ul (4.20-5.40); RED CELL DISTRIBUTION WIDTH 13.9 % (11.5-14.5)
[2017-06-24 08:42] LABS: POSITIVE DIFF @See below
[2017-06-24] MEDS: ENOXAPARIN 40 MG/0.4 ML SYG SC SCH (08:42)
[2017-06-24] MEDS: DULOXETINE 30 MG CAP DR PO SCH (09:00)
[2017-06-24] MEDS: LORATADINE 10 MG TAB PO SCH (09:00)
[2017-06-24] MEDS: HYDROCHLOROTHIAZIDE 25 MG TAB PO SCH (09:00)
[2017-06-24] MEDS: CITALOPRAM 20 MG TAB PO SCH (09:00)
[2017-06-24] MEDS: LOSARTAN 50 MG TAB PO SCH (09:00)
[2017-06-24] MEDS: ASPIRIN (EC) 81 MG TAB PO SCH (09:00)
[2017-06-24] MEDS: FAMOTIDINE 20 MG TAB PO SCH ×2 (09:00→20:42)
[2017-06-24] MEDS: METOPROLOL 100 MG TAB PO SCH ×2 (09:00→20:43)
[2017-06-24 09:07] LABS: CALCIUM 9.1 mg/dl (8.4-10.2); CREATININE 0.55 mg/dl (0.44-1.00); MAGNESIUM 1.5 mg/dl (1.7-2.5); PHOSPHORUS 3.3 mg/dl (2.5-4.9); POTASSIUM 3.9 mmol/L (3.5-5.1)
[2017-06-24] MEDS: NITROGLYCERIN (SL) 0.4 MG TAB SL PRN (10:23)
[2017-06-24] MEDS ORDERED: REGADENOSON 0.4 MG/5 ML SYG ONE (13:45)
[2017-06-24] MEDS: ACETAMINOPHEN 325 MG TAB PO PRN ×2 (15:28→21:37)
--- NOTE | 2017-06-24 16:05 | RADRPT ---
PROCEDURE: Nuclear medicine myocardial stress and rest scan. CLINICAL INDICATION: Chest pain. TECHNIQUE: The patient was stressed with 0.4 mg IV Lexiscan. 10.4 mCi technetium 99m Tetrofosmin (Myoview) was administered rest. 26.6 mCi technetium 99m Tetrofosmin (Myoview) was administered du ring stress. Images were obtained and reconstructed in the short axis, horizontal long axis, and ve rtical long axis. Gated images were obtained and ejection fraction was calculated. COMPARISON: No prior study is available for comparison. FINDINGS: The stress and rest images demonstrate normal uptake throughout. There is no fixed abnormality or r eversible abnormality. There is no evidence of transient ischemic dilatation. Wall motion is normal. There is normal wall thickening during systole. Ejection fraction at stress is 69%. IMPRESSION: 1. No evidence of stress induced myocardial ischemia. 2. Ejection fraction at stress is 69%. RPTAT: QQ .Mando English MD, MD Date Time Electronically viewed and signed by .Mando English MD, on 06/24/2017 16:05 .R/
--- NOTE | 2017-06-24 16:46 | CONS ---
Date/Time of Note Date/Time of Note DATE: 06/24/17 TIME: 16:45 Assessment/Plan Assessment/Plan Additional Assessment/Plan Chest pain Hypertension Diabetes Obesity -Patient plan for nuclear cardiac perfusion study today. Denies chest pain currently. Continue CV risk factor management. Consultation Date/Type/Reason Admit Date/Time Jun 22, 2017 at 16:27 Initial Consult Date Type of Consultation: cv 24 HR Interval Summary Free Text/Dictation Denies chest pain currently, or shortness of breath. Exam/Review of Systems Vital Signs Vitals Vital Signs Date Time Temp Pulse Resp B/P Pulse Ox O2 Delivery O2 Flow Rate FiO2 06/24/17 16:16 98.0 92 20 166/85 98 06/24/17 08:04 Nasal Cannula 2.0 Intake and Output 06/23/17 06/23/17 06/24/17 15:00 23:00 07:00 Intake Total 2400 ml 450 ml Balance 2400 ml 450 ml Exam No apparent distress Constitutional: alert, obese, oriented Head: normocephalic Respiratory: clear to auscultation, normal air movement Cardiovascular: other (S1-S2 heard), regular rate and rhythm Gastrointestinal: bowel sounds, non-tender, soft Extremities: edema (Trace) Results Result Diagram: 06/24/17 0753 06/24/17 0753 Results 24 hrs Laboratory Tests Test 06/23/17 17:00 06/23/17 21:16 06/24/17 02:28 06/24/17 07:44 Bedside Glucose 288 H 247 H 276 H 301 H Test 06/24/17 07:53 06/24/17 12:08 White Blood Count 13.0 #H Red Blood Count 3.77 L Hemoglobin 11.4 L Hematocrit 35.2 L Mean Corpuscular Volume 93.4 Mean Corpuscular Hemoglobin 30.2 Mean Corpuscular Hemoglobin Concent 32.4 Red Cell Distribution Width 13.9 Platelet Count 143 Mean Platelet Volume 13.9 H Neutrophils % 63.8 Lymphocytes % 26.9 Monocytes % 7.2 Eosinophils % 1.3 Basophils % 0.4 Nucleated Red Blood Cells % 0.0 Neutrophils # 8.3 H Lymphocytes # 3.5 H Monocytes # 0.9 Eosinophils # 0.2 Basophils # 0.1 Nucleated Red Blood Cells # 0.0 Sodium Level 142 Potassium Level 3.9 Chloride Level 103 Carbon Dioxide Level 28 Anion Gap 15 Blood Urea Nitrogen 10 Creatinine 0.55 Glucose Level 274 H Calcium Level 9.1 Phosphorus Level 3.3 Magnesium Level 1.5 L Albumin 4.0 Bedside Glucose 269 H Medications Medications Current Medications Aspirin (Halfprin) 81 mg DAILY PO Last administered on 06/23/17 09:02; Admin Dose 81 MG; Start 06/23/17 at 09:00 Citalopram Hydrobromide (Celexa) 20 mg DAILY PO Last administered on 08:55; Admin Dose 20 MG; Start 06/23/17 at 09:00 Duloxetine HCl (Cymbalta) 60 mg DAILY PO Last administered on 06/23/17 09:02 ; Admin Dose 60 MG; Start 06/23/17 at 09:00 Famotidine (Pepcid) 20 mg BID PO Last administered on 06/23/17 21:19; Admin Dose 20 MG; Start 06/22/17 at 21:00 Hydrochlorothiazide (Hydrochlorothiazide) 25 mg DAILY PO Last administered on 06/23/17 09:03; Admin Dose 25 MG; Start 06/23/17 at 09:00 Loratadine (Claritin) 10 mg DAILY PO Last administered on 06/23/17 09:02; Admin Dose 10 MG; Start 06/23/17 at 09:00 Losartan Potassium (Cozaar) 50 mg DAILY PO Last administered on 06/23/17 09: 00; Admin Dose 50 MG; Start 06/23/17 at 09:00 Metoprolol Tartrate (Lopressor) 100 mg BID PO Last administered on 06/23/17 21:19; Admin Dose 100 MG; Start 06/22/17 at 21:00 Trazodone HCl (Desyrel) 50 mg QHS PO Last administered on 06/23/17 21:46; Admin Dose 50 MG; Start 06/22/17 at 21:00 Atorvastatin Calcium (Lipitor) 10 mg DAILY@21 PO Last administered on 21:17; Admin Dose 10 MG; Start 06/22/17 at 21:00 Ondansetron HCl (Zofran Inj) 4 mg Q6H PRN IV NAUSEA AND/OR VOMITING; Start at 17:30 Acetaminophen (Tylenol Tab) 650 mg Q6H PRN PO PAIN LEVEL 1-3 OR FEVER Last administered on 06/24/17 15:28; Admin Dose 650 MG; Start 06/22/17 at 17:30 Morphine Sulfate (morphine) 2 mg Q4H PRN IV PAIN LEVEL 7-10; Start 06/22/17 at 17:30 Docusate Sodium (Colace) 100 mg Q12H PRN PO CONSTIPATION; Start 06/22/17 at 17 :30 Magnesium Hydroxide (Milk Of Mag) 30 ml DAILY PRN PO CONSTIPATION; Start 06/22 at 17:30 Enoxaparin Sodium (Lovenox) 40 mg DAILY SC Last administered on 06/24/17 08: 42; Admin Dose 40 MG; Start 06/23/17 at 09:00 Nitroglycerin (Nitroglycerin (Sl Tab) 0.4 Mg) 1 tab Q5M PRN SL ANGINA Last administered on 06/24/17 10:23; Admin Dose 1 TAB; Start 06/22/17 at 17:30 Nicotine (Nicoderm 7 Mg/ 24 Hr) 1 patch DAILY TRANSDERM Last administered on 08:33; Admin Dose 1 PATCH; Start 06/22/17 at 18:00 Miscellaneous Information 1 ea NOTE XX ; Start 06/23/17 at 13:00 Glucose (Glutose) 15 gm Q15M PRN PO DECREASED GLUCOSE; Start 06/23/17 at 13:00 Glucose (Glutose) 22.5 gm Q15M PRN PO DECREASED GLUCOSE; Start 06/23/17 at 13: 00 Dextrose (D50w Syringe) 25 ml Q15M PRN IV DECREASED GLUCOSE; Start 06/23/17 at 13:00 Dextrose (D50w Syringe) 50 ml Q15M PRN IV DECREASED GLUCOSE; Start 06/23/17 at 13:00 Glucagon (Glucagen) 1 mg Q15M PRN IM DECREASED GLUCOSE; Start 06/23/17 at 13: 00 Glucose (Glutose) 15 gm Q15M PRN BUCCAL DECREASED GLUCOSE; Start 06/23/17 at 13:00 Diagnostic Test (Pha) (Accu-Chek) 1 ea 02 XX ; Start 06/24/17 at 02:00 Insulin Glargine 30 unit 30 unit DAILY@08 SC ; Start 06/25/17 at 08:00 Magnesium Sulfate/ Dextrose (Magnesium Sulfate 1 Gm/D5W) 100 ml @ 100 mls/hr ONCE ONCE IVPB Last administered on 06/24/17t 16:34; Admin Dose 100 MLS/HR; Start 06/24/17 at 17:00; Stop 06/24/17 at 17:59 Methocarbamol (Robaxin) 1,500 mg TID PO ; Start 06/24/17 at 21:00 Abdoul Arenas DO Jun 24, 2017 16:46
[2017-06-24] MEDS ORDERED: MAGNESIUM SULFATE 1 GM/D5W 100 ML IVPB ONE (17:00)
--- NOTE | 2017-06-24 18:40 | PN ---
Date/Time of Note Date/Time of Note DATE: 06/24/17 TIME: 18:32 Assessment/Plan VTE Prophylaxis VTE Prophylaxis Intervention: ambulation Lines/Catheters IV Catheter Type (from Nrs): Saline Lock Urinary Cath still in place: No Assessment/Plan Chief Complaint/Hosp Course Assessment/Plan 1. Chest pain rule out ACS - Chest pain has improved - stress test negative - Aspirin, BB, statin - LDL 54, TG 186 - CTA performed and no acute abnormalities as secondary causes of chest pain 2. Diabetes Mellitus with neuropathy - Presented with glucose of 300 and patient states her sugars usually run high - A1c 9.5 - Adjustments made to insulin regime and will consult parent educator for further assistance - Holding PO Metformin and glipizide - On cymbalta -found out today patient also on insulin at home, takes twice a day, unknown type, likely NPH 3. HTN - currently stable - continue home medications and will adjust as needed 4. HLD - On statin 5. Gastritis - On PPI 6. Obesity - Counselled about diet modification and exercise 7. Hypokalemia - 3.3, replaced 8. Disposition - stress test WNL, trying robaxin, will monitor. DC tomorrow am/afternoon Problems: Exam/Review of Systems Vital Signs Vitals Vital Signs Date Time Temp Pulse Resp B/P Pulse Ox O2 Delivery O2 Flow Rate FiO2 06/24/17 16:46 91 06/24/17 16:16 98.0 20 166/85 98 06/24/17 08:04 Nasal Cannula 2.0 Intake and Output 06/23/17 06/23/17 06/24/17 15:00 23:00 07:00 Intake Total 2400 ml 450 ml Balance 2400 ml 450 ml Results Result Diagram: 06/24/17 0753 06/24/17 0753 Results 24 hrs Laboratory Tests Test 06/23/17 21:16 06/24/17 02:28 06/24/17 07:44 06/24/17 07:53 Bedside Glucose 247 H 276 H 301 H White Blood Count 13.0 #H Red Blood Count 3.77 L Hemoglobin 11.4 L Hematocrit 35.2 L Mean Corpuscular Volume 93.4 Mean Corpuscular Hemoglobin 30.2 Mean Corpuscular Hemoglobin Concent 32.4 Red Cell Distribution Width 13.9 Platelet Count 143 Mean Platelet Volume 13.9 H Neutrophils % 63.8 Lymphocytes % 26.9 Monocytes % 7.2 Eosinophils % 1.3 Basophils % 0.4 Nucleated Red Blood Cells % 0.0 Neutrophils # 8.3 H Lymphocytes # 3.5 H Monocytes # 0.9 Eosinophils # 0.2 Basophils # 0.1 Nucleated Red Blood Cells # 0.0 Sodium Level 142 Potassium Level 3.9 Chloride Level 103 Carbon Dioxide Level 28 Anion Gap 15 Blood Urea Nitrogen 10 Creatinine 0.55 Glucose Level 274 H Calcium Level 9.1 Phosphorus Level 3.3 Magnesium Level 1.5 L Albumin 4.0 Test 06/24/17 12:08 06/24/17 17:30 Bedside Glucose 269 H 306 H Medications Medications Current Medications Aspirin (Halfprin) 81 mg DAILY PO Last administered on 06/23/17 09:02; Admin Dose 81 MG; Start 06/23/17 at 09:00 Citalopram Hydrobromide (Celexa) 20 mg DAILY PO Last administered on 08:55; Admin Dose 20 MG; Start 06/23/17 at 09:00 Duloxetine HCl (Cymbalta) 60 mg DAILY PO Last administered on 06/23/17 09:02 ; Admin Dose 60 MG; Start 06/23/17 at 09:00 Famotidine (Pepcid) 20 mg BID PO Last administered on 06/23/17 21:19; Admin Dose 20 MG; Start 06/22/17 at 21:00 Hydrochlorothiazide (Hydrochlorothiazide) 25 mg DAILY PO Last administered on 06/23/17 09:03; Admin Dose 25 MG; Start 06/23/17 at 09:00 Loratadine (Claritin) 10 mg DAILY PO Last administered on 06/23/17 09:02; Admin Dose 10 MG; Start 06/23/17 at 09:00 Losartan Potassium (Cozaar) 50 mg DAILY PO Last administered on 06/23/17 09: 00; Admin Dose 50 MG; Start 06/23/17 at 09:00 Metoprolol Tartrate (Lopressor) 100 mg BID PO Last administered on 06/23/17 21:19; Admin Dose 100 MG; Start 06/22/17 at 21:00 Trazodone HCl (Desyrel) 50 mg QHS PO Last administered on 06/23/17 21:46; Admin Dose 50 MG; Start 06/22/17 at 21:00 Atorvastatin Calcium (Lipitor) 10 mg DAILY@21 PO Last administered on 21:17; Admin Dose 10 MG; Start 06/22/17 at 21:00 Ondansetron HCl (Zofran Inj) 4 mg Q6H PRN IV NAUSEA AND/OR VOMITING; Start at 17:30 Acetaminophen (Tylenol Tab) 650 mg Q6H PRN PO PAIN LEVEL 1-3 OR FEVER Last administered on 06/24/17 15:28; Admin Dose 650 MG; Start 06/22/17 at 17:30 Morphine Sulfate (morphine) 2 mg Q4H PRN IV PAIN LEVEL 7-10; Start 06/22/17 at 17:30 Docusate Sodium (Colace) 100 mg Q12H PRN PO CONSTIPATION; Start 06/22/17 at 17 :30 Magnesium Hydroxide (Milk Of Mag) 30 ml DAILY PRN PO CONSTIPATION; Start 06/22 at 17:30 Enoxaparin Sodium (Lovenox) 40 mg DAILY SC Last administered on 06/24/17 08: 42; Admin Dose 40 MG; Start 06/23/17 at 09:00 Nitroglycerin (Nitroglycerin (Sl Tab) 0.4 Mg) 1 tab Q5M PRN SL ANGINA Last administered on 06/24/17 10:23; Admin Dose 1 TAB; Start 06/22/17 at 17:30 Nicotine (Nicoderm 7 Mg/ 24 Hr) 1 patch DAILY TRANSDERM Last administered on 08:33; Admin Dose 1 PATCH; Start 06/22/17 at 18:00 Miscellaneous Information 1 ea NOTE XX ; Start 06/23/17 at 13:00 Glucose (Glutose) 15 gm Q15M PRN PO DECREASED GLUCOSE; Start 06/23/17 at 13:00 Glucose (Glutose) 22.5 gm Q15M PRN PO DECREASED GLUCOSE; Start 06/23/17 at 13: 00 Dextrose (D50w Syringe) 25 ml Q15M PRN IV DECREASED GLUCOSE; Start 06/23/17 at 13:00 Dextrose (D50w Syringe) 50 ml Q15M PRN IV DECREASED GLUCOSE; Start 06/23/17 at 13:00 Glucagon (Glucagen) 1 mg Q15M PRN IM DECREASED GLUCOSE; Start 06/23/17 at 13: 00 Glucose (Glutose) 15 gm Q15M PRN BUCCAL DECREASED GLUCOSE; Start 06/23/17 at 13:00 Diagnostic Test (Pha) (Accu-Chek) 1 ea 02 XX ; Start 06/24/17 at 02:00 Insulin Glargine (Lantus) 30 unit DAILY@08 SC ; Start 06/25/17 at 08:00 Methocarbamol (Robaxin) 1,500 mg TID PO ; Start 06/24/17 at 21:00 IGNACIA ONTIVEROS Jun 24, 2017 18:40
[2017-06-24] MEDS: traZODone 50 MG TAB PO SCH (20:42)
[2017-06-24] MEDS: ATORVASTATIN 10 MG TAB PO SCH (20:42)
[2017-06-24] MEDS: METHOCARBAMOL 750 MG TAB PO SCH (20:43)
[2017-06-24] MEDS ORDERED: INSULIN ASPART [NOVOLOG] 3 ML PEN SC ONE (21:30)
[2017-06-24] MEDS: metFORMIN 500 MG TAB PO SCH (23:59)
[2017-06-25] VITALS (10 sets, daily range): BP systolic 119–137; BP diastolic 60–70; PULSE 75–85; RESP 20
[2017-06-25] MEDS ORDERED: INSULIN ASPART [NOVOLOG] 3 ML PEN SC ONE
[2017-06-25] MEDS: ACCU-CHEK XX SCH (02:22)
[2017-06-25 07:04] LABS: ABNORMAL IP MESSAGE 1; BASOPHIL # 0.1 10^3/ul (0.0-0.1); BASOPHILS % 0.6 % (0.0-2.0); EOSINOPHILS # 0.2 10^3/ul (0.0-0.5); EOSINOPHILS % 1.8 % (0.0-7.0); HEMATOCRIT 32.5 % (37.0-47.0); HEMOGLOBIN 10.5 g/dl (12.0-16.0); MEAN CORPUSCULAR HEMOGLOBIN 30.2 pg (29.0-33.0); MEAN CORPUSCULAR HGB CONC 32.3 g/dl (32.0-37.0); MEAN CORPUSCULAR VOLUME 93.4 fl (82.0-101.0); MEAN PLATELET VOLUME 13.8 fl (7.4-10.4); MONOCYTE # 0.9 10^3/ul (0.3-0.9); MONOCYTES % 9.2 % (0.0-11.0); NEUTROPHIL # 4.9 10^3/ul (1.6-7.5); PLATELET COUNT 134 10^3/UL (140-415); RED BLOOD COUNT 3.48 10^6/ul (4.20-5.40); RED CELL DISTRIBUTION WIDTH 13.9 % (11.5-14.5); WHITE BLOOD COUNT 10.1 10^3/ul (4.8-10.8)
[2017-06-25 07:09] LABS: POSITIVE DIFF @See below
[2017-06-25 07:25] LABS: ALBUMIN 3.3 g/dl (3.3-4.9); CREATININE 0.54 mg/dl (0.44-1.00); MAGNESIUM 1.7 mg/dl (1.7-2.5); PHOSPHORUS 3.4 mg/dl (2.5-4.9); POTASSIUM 3.9 mmol/L (3.5-5.1)
[2017-06-25] MEDS ORDERED: INSULIN GLARGINE [LANtus] 3 ML PEN SC SCH (08:00)
[2017-06-25] MEDS: CITALOPRAM 20 MG TAB PO SCH (08:08)
[2017-06-25] MEDS: DULOXETINE 30 MG CAP DR PO SCH (08:08)
[2017-06-25] MEDS: METOPROLOL 100 MG TAB PO SCH (08:09)
[2017-06-25] MEDS: ASPIRIN (EC) 81 MG TAB PO SCH (08:09)
[2017-06-25] MEDS: LORATADINE 10 MG TAB PO SCH (08:09)
[2017-06-25] MEDS: HYDROCHLOROTHIAZIDE 25 MG TAB PO SCH (08:10)
[2017-06-25] MEDS: FAMOTIDINE 20 MG TAB PO SCH (08:10)
[2017-06-25] MEDS: METHOCARBAMOL 750 MG TAB PO SCH ×2 (08:10→13:04)
[2017-06-25] MEDS: LOSARTAN 50 MG TAB PO SCH (08:11)
[2017-06-25] MEDS: NICOTINE (7 MG/24 HR) PATCH TRANSDERM SCH (08:11)
[2017-06-25] MEDS: ENOXAPARIN 40 MG/0.4 ML SYG SC SCH (08:12)
[2017-06-25] MEDS: INSULIN ASPART [NOVOLOG] 3 ML PEN SC SCH ×3 (08:13→12:48)
[2017-06-25] MEDS: metFORMIN 500 MG TAB PO SCH (08:16)
[2017-06-25] MEDS ORDERED: INSULIN ASPART [NOVOLOG] 3 ML PEN SC SCH (11:50)
--- NOTE | 2017-06-25 14:24 | RADRPT ---
Echocardiogram Report Patient Name: PAULINA BARNARD Gender: Female Date: 1970 Study Date: 23-Jun-2017 Technician Support Engineer: BRAD Location: [id number] Ref. Physician: SAMEERA PEDRO Quality: Good Procedures: Transthoracic echocardiogram with complete 2D, M-Mode, and doppler examination. Indications: Chest Pain. 2D/M Mode Doppler Measurement Value Normal Ranges Measurement Value Normal Ranges AoR Diam MM 2.7 cm IRINEO Vmax 2.0 cm2 ACS MM 1.9 cm IRINEO VTI 2.0 cm2 LA/Ao MM 1.3 AV Peak Placido 1.6 m/sec LA Dimen MM 4.1 cm AV Peak PG 10.3 mmHg LVIDd 2D 4.2 3.5 - 5.6 cm LVOT Peak Placido 1.1 m/sec LVIDs 2D 2.8 2.1 - 4.1 cm LVOT Peak PG 5.2 mmHg LVPWd 2D 1.2 0.6 - 1.1 cm MV E Peak Placido 0.4 m/sec IVSd 2D 1.2 0.6 - 1.1 cm MV A Peak Placido 0.6 m/sec EDV 2D 77.0 cm3 MV E/A 0.7 ESV 2D 23.0 cm3 MV Decel Time 146 msec EF 2D 60.0 50.0 - 65.0 % MV Decel Gosper 3 LVOT Diam 1.9 cm MV E/A 0.7 TR Peak Placido 3.0 m/sec TR Peak PG 37.0 mmHg RVSP 40.0 mmHg RA Pressure 3.0 Findings Left Ventricle: Normal left ventricular systolic function. Normal left ventricular cavity size. Mild concentric left ventricular hypertrophy. Ejection fraction is visually estimated at 65 %. Tissue Doppler/Mitral Doppler indices are consistent with impaired relaxation (Stage I diastolic dysfunction). Right Ventricle: Normal right ventricular size. Normal right ventricular systolic function. Left Atrium: There is mild enlargement of left atrium. Right Atrium: The right atrium is normal in size. Mitral Valve: Normal appearance and function of the mitral valve with mild regurgitation. Aortic Valve: Normal appearance of the aortic valve. No significant aortic stenosis or insufficiency. Tricuspid Valve: Normal appearance and function of the tricuspid valve. Estimated peak PA systolic pressure 40 mmHg. Pulmonic Valve: Normal pulmonic valve appearance. There is trace pulmonic regurgitation by color. Pericardium: Normal pericardium with no significant pericardial effusion. Aorta: Normal aortic root. IVC: Normal size and normal respiratory collapse consistent with normal right atrial pressure. Pulmonary Artery: Normal pulmonary artery size. Conclusions 1.Normal left ventricular systolic function. Normal left ventricular cavity size. Mild concentric left ventricular hypertrophy. Ejection fraction is visually estimated at 65 %. Tissue Doppler/Mitral Doppler indices are consistent with impaired relaxation (Stage I diastolic dysfunction). 2.Normal right ventricular size. Normal right ventricular systolic function. 3.There is mild enlargement of left atrium. 4.The right atrium is normal in size. 5.No significant valvular stenosis or regurgitation seen. 6.Normal pericardium with no significant pericardial effusion. Electronically Signed By: Abdoul Arenas 25-Jun-2017 14:23:56 -0700 Patient Name: PAULINA BARNARD Study Date: 23-Jun-2017 [id number]
--- NOTE | 2017-06-25 15:23 | PDOCDIS ---
Discharge Instructions CONDITION Patient Condition: Stable HOME CARE INSTRUCTIONS: Diet Instructions: Reduced CalorieSpecial Diet: cardiac FOLLOW UP/APPOINTMENTS Follow-up Plan 1. Follow up with your primary care provider as soon as possible 2. Increase insulin NPH to 18bid and make sure to take glucose fingerstick checks 3. Adjust insulin as needed per primary care provider 4. Take all other home medications as directed IGNACIA ONTIVEROS Jun 25, 2017 15:23
--- NOTE | 2017-06-25 16:29 | DS ---
Date/Time of Note Date/Time of Note DATE: 06/25/17 TIME: 16:28 Discharge Summary Admission/Discharge Info Admit Date/Time Jun 22, 2017 at 16:27 Discharge Date/Time Patient Condition: Stable Hx of Present Illness 47 yo F with PMH HTN, obesity, HLD, DM, and GERD presented to ED c/o left sided chest pain, 10/10 but improved to 7/10 after given medication in ED, radiating to left shoulder and down left arm with associated vomiting, dizziness, and generalized body aches that has worsened since yesterday around 4-5 pm. She states the pain was intermittent and returned around 11pm. She experienced 3-4 episodes of emesis and body shakes with the pain last night. She presented today since she did not have a ride to the hospital last night. She does admit to having chest pain in the past but does not remember how long ago. She follows with a PCP but does not have a traffic operations manager. Admits to generalized abdominal pain which she associates with vomiting but denies any headaches, nausea, shortness of breath, urinary issues, constipation or diarrhea. She states her sugars have been running high and usually on PO medications as well as insulin regime. Hospital Course Discharge diagnosis Chest pain, likely musculoskeletal Uncontrolled diabetes mellitus Peripheral neuropathy, secondary to diabetes Hypertension This lipidemia Gastritis Obesity Electrolytic derangement Hospital course Patient presented with chest pain and was admitted into the medicine service. Patient was evaluated by cardiology and obtain stress test which did not show any signs of reversible ischemia. However patient did have some residual chest pain. It is highly likely patient's chest pain is musculoskeletal and it was suggested patient follow-up in the outpatient setting with her primary care provider. Patient's diabetes was also found to be not well controlled with a hemoglobin A1c of 9.1% and sugars routinely in the 300s during the stay. It should be of note that patient's home medications was not used during this admission, so glucose during this admission is not fully accurate, however with such a high A1c, patient is unlikely under well control. Patient will be discharged to continue all home medications with a minor adjustment of insulin, as patient takes NPH at home. Using an official keymodule assembly supervisor via phone, it was explained explicitly that the patient is to follow-up with her primary care provider in order to fully evaluate other causes of chest pain as well as control her diabetes. Patient understands and will follow up with her primary care provider as soon as possible. Home Meds Active Scripts Simvastatin (Simvastatin) 20 Mg Tablet, 20 MG PO HS for 30 Days Prov:ROSITA KENDRICK 06/01/15 Reported Medications Duloxetine Hcl* (Duloxetine Hcl*) 60 Mg Capsule.dr, 60 MG PO DAILY, #30 CAP 06/22/17 Duloxetine Hcl* (Duloxetine Hcl*) 30 Mg Capsule.dr, 30 MG PO DAILY, #30 CAP 06/22/17 Trazodone Hcl* (Desyrel*) 50 Mg Tablet, 50 MG PO QHS, #30 TAB 06/22/17 Metformin Hcl* (Metformin Hcl*) 1,000 Mg Tablet, 1000 MG PO WITH BREAKFAST DINNE , #60 TAB 06/22/17 Albuterol Sulfate* (Ventolin HFA*) 18 Gm Hfa.aer.ad, 2 PUFF INHALATION Q6H, #1 INHALER 06/22/17 Losartan Potassium* (Losartan Potassium*) 50 Mg Tablet, 50 MG PO DAILY, TAB 06/22/17 Loratadine* (Loratadine*) 10 Mg Tablet, 10 MG PO DAILY, #30 TAB 06/22/17 Aspirin (Aspir-Low) 81 Mg Tablet.dr, 81 MG PO DAILY 06/22/17 Famotidine* (Famotidine*) 20 Mg Tablet, 20 MG PO BID, #60 TAB 06/22/17 Metoprolol Tartrate* (Lopressor*) 100 Mg Tablet, 100 MG PO BID, #60 TAB 06/22/17 Citalopram Hydrobromide* (Citalopram Hydrobromide*) 20 Mg Tablet, 20 MG PO DAILY , TAB 07/06/14 Hydrochlorothiazide* (Hydrochlorothiazide*) 25 Mg Tab, 25 MG PO DAILY, TAB 07/06/14 Nph, Human Insulin Isophane (Humulin N) 100 Units/Ml Vial, 16 UNIT SC BID, VIAL 07/06/14 Glimepiride* (Glimepiride*) 4 Mg Tablet, 4 MG PO BID 10/29/13 Discontinued Reported Medications Omeprazole* (Omeprazole*) 20 Mg Capsule.dr, 20 MG PO BID, CAP 07/06/14 Cyclobenzaprine Hcl* (Cyclobenzaprine Hcl*) 10 Mg Tablet, 10 MG PO TID, TAB 07/06/14 Metformin Hcl (Glucophage) 500 Mg Tablet, 1000 MG PO BID 10/30/13 Fish Oil* (Fish Oil*) 1,000 Mg Cap, 1000 MG PO BID, CAP 10/29/13 Metoprolol (Lopressor) 50 Mg Tablet, 50 MG PO BID 10/29/13 Discontinued Scripts Ranitidine Hcl* (Zantac*) 150 Mg Tablet, 150 MG PO BID, #60 TAB Prov:VICTORINO MCBRIDE DO 04/06/17 Naproxen* (Naproxen*) 500 Mg Tablet, 500 MG PO BID Y for PAIN, #20 TAB Prov:GREENVICTORINO DO 04/06/17 Ibuprofen* (Motrin*) 600 Mg Tab, 600 MG PO Q6H Y for PAIN AND OR ELEVATED TEMP, #30 TAB Prov:AUDRA HEALY MD 12/26/16 Ciprofloxacin Hcl* (Ciprofloxacin Hcl*) 500 Mg Tablet, 500 MG PO BID for 10 Days , TAB Prov:AUDRA HEALY MD 12/26/16 Oxycodone HCl/Acetaminophen (Percocet 5-325 mg Tablet) 1 Each Tablet, 1 EACH PO TID for PAIN LEVEL 6-10, #9 TAB Prov:IGNACIA VASQUEZ MD 12/02/16 Cephalexin* (Keflex*) 500 Mg Capsule, 500 MG PO TID for 10 Days, CAP Prov:JOCY,JESUS 11/29/16 Ondansetron (Ondansetron Odt) 4 Mg Tab.rapdis, 4 MG PO Q6H Y for NAUSEA AND/OR VOMITING, #10 TAB Prov:JOCY,JESUS 11/29/16 Ibuprofen* (Motrin*) 600 Mg Tab, 600 MG PO Q6H Y for PAIN AND OR ELEVATED TEMP, #30 TAB Prov:JOCY,JESUS 11/29/16 Guaifenesin-Dextromethorphan* (Robitussin* DM) 100MG/10MG/5ML Syrup, 10 ML PO Q6H Y for COUGH, #30 ML Prov:SALEEM SUAREZ DO 09/21/16 Ibuprofen* (Motrin*) 800 Mg Tab, 800 MG PO Q6H Y for PAIN AND OR ELEVATED TEMP, #30 TAB Prov:SALEEM SUAREZ DO 1/20/17 Albuterol Sulfate* (Ventolin HFA*) 18 Gm Hfa.aer.ad, 2 PUFF INHALATION Q4H, #1 INHALER Prov:GENARO JARQUIN MD 05/23/16 Ibuprofen* (Motrin*) 600 Mg Tab, 600 MG PO Q6, #20 TAB Prov:GENARO JARQUIN MD 05/23/16 Loratadine* (Claritin*) 1 Mg/Ml Syrup, 5 MG PO DAILY, #1 BOTTLE Prov:PILAR RIOS NP 07/28/15 Nitroglycerin* (Nitrostat*) 0.4 Mg Tab.subl, 0.4 MG SL Q5MIN Y for CHEST PAIN, # 30 BOTTLE 3 dose max Prov:ROSITA KENDRICK 06/01/15 Aspirin (Aspirin) 81 Mg Chew, 81 MG PO DAILY for 30 Days Prov:ROSITA KENDRICK 06/01/15 Follow-up Plan 1. Follow up with your primary care provider as soon as possible 2. Increase insulin NPH to 18bid and make sure to take glucose fingerstick checks 3. Adjust insulin as needed per primary care provider 4. Take all other home medications as directed Primary Care Provider [facility] Comprehensive H.c. Pending Labs Laboratory Tests Test 06/24/17 17:30 06/24/17 20:55 06/24/17 22:58 06/25/17 02:04 Bedside Glucose 306mg/dL (70-220) 403mg/dL (70-220) 389mg/dL (70-220) 375mg/dL (70-220) Test 06/25/17 04:57 06/25/17 06:37 06/25/17 07:54 06/25/17 12:37 Bedside Glucose 351mg/dL (70-220) 357mg/dL (70-220) 305mg/dL (70-220) White Blood Count 10.110^3/ul (4.8-10.8) Red Blood Count 3.4810^6/ul (4.20-5.40) Hemoglobin 10.5g/dl (12.0-16.0) Hematocrit 32.5% (37.0-47.0) Mean Corpuscular Volume 93.4fl (82.0-101.0) Mean Corpuscular Hemoglobin 30.2pg (29.0-33.0) Mean Corpuscular Hemoglobin Concent 32.3g/dl (32.0-37.0) Red Cell Distribution Width 13.9% (11.5-14.5) Platelet Count 92465^3/UL (140-415) Mean Platelet Volume 13.8fl (7.4-10.4) Neutrophils % 48.0% (39.0-77.0) Lymphocytes % 40.0% (15.0-51.0) Monocytes % 9.2% (0.0-11.0) Eosinophils % 1.8% (0.0-7.0) Basophils % 0.6% (0.0-2.0) Nucleated Red Blood Cells % 0.0/100WBC (0.0-0.0) Neutrophils # 4.910^3/ul (1.6-7.5) Lymphocytes # 4.010^3/ul (0.8-2.9) Monocytes # 0.910^3/ul (0.3-0.9) Eosinophils # 0.210^3/ul (0.0-0.5) Basophils # 0.110^3/ul (0.0-0.1) Nucleated Red Blood Cells # 0.010^3/ul (0.0-0.0) Sodium Level 141mmol/L (135-144) Potassium Level 3.9mmol/L (3.5-5.1) Chloride Level 108mmol/L (97-110) Carbon Dioxide Level 27mmol/L (21-31) Anion Gap 10 (8-16) Blood Urea Nitrogen 11mg/dl (7-20) Creatinine 0.54mg/dl (0.44-1.00) Glucose Level 318mg/dl (70-220) Calcium Level 9.0mg/dl (8.4-10.2) Phosphorus Level 3.4mg/dl (2.5-4.9) Magnesium Level 1.7mg/dl (1.7-2.5) Albumin 3.3g/dl (3.3-4.9) IGNACIA ONTIVEROS Jun 25, 2017 16:28
--- NOTE | 2017-06-27 14:41 | EN ---
Date/Time of Note Date/Time of Note DATE: 06/27/17 TIME: 14:30 Event Note Cardiology Cardiology Event Note Lexiscan nuclear ECG report 06/24/2017 This is a 47-year-old female with symptoms of chest pain Baseline ECG sinus rhythm at 84 bpm, T-wave inversions Baseline blood pressure 147/80 Lexiscan was a medicine as per protocol Symptoms of headache Peak heart rate 114 Peak blood pressure 150/81 ECG changes less than [address] depressions ECG interpretation nondiagnostic secondary to baseline ECG abnormalities The nuclear portion will be interpreted by radiology colleagues. Abdoul Arenas DO Jun 27, 2017 14:41
== END 2017-06-25 17:21 | disposition home or self-care (01) | DRG 313 ==
LOC: E/R 13:09 → TEL 16:27
PROVIDERS: ADMIT Internal Medicine; ATTEND Internal Medicine
DX: R07.89 Other chest pain (principal); E11.42 Type 2 diabetes mellitus with diabetic polyneuropathy; E11.65 Type 2 diabetes mellitus with hyperglycemia; I10 Essential (primary) hypertension; K29.70 Gastritis, unspecified, without bleeding; E03.9 Hypothyroidism, unspecified; Z68.39 Body mass index [BMI] 39.0-39.9, adult; K21.9 Gastro-esophageal reflux disease without esophagitis; E78.00 Pure hypercholesterolemia, unspecified; F17.210 Nicotine dependence, cigarettes, uncomplicated; R74.8 Abnormal levels of other serum enzymes; E87.6 Hypokalemia; E66.01 Morbid (severe) obesity due to excess calories; Z79.4 Long term (current) use of insulin; Z79.82 Long term (current) use of aspirin
CPT/HCPCS: 36415; 71010; 71275; 78452; 80048; 80061; 80069; 82550; 82553; 82962; 83036; 83735; 84443; 84484; 85025; 85610; 85730; 93005; 93017; 93306; 96374; 96375; A9500; A9505; J1650; J1815; J2270; J2405; J2785; J3475; J7040; Q9967

== ENCOUNTER → 2017-07-11 | Outpatient (CLI) | END | disposition home or self-care (01) ==

== ENCOUNTER 2017-11-02 11:51 | Emergency (ER) | END 2017-11-02 17:00 | disposition home or self-care (01) ==

== ENCOUNTER 2018-01-03 21:10 | Emergency (ER) | END 2018-01-04 02:30 | disposition home or self-care (01) ==

== ENCOUNTER → 2018-05-16 | Emergency (ER) | END | disposition home or self-care (01) ==

== ENCOUNTER 2018-07-16 18:57 | Emergency (ER) | END 2018-07-16 23:14 | disposition home or self-care (01) ==

== ENCOUNTER 2018-10-22 11:25 | Emergency (ER) | payer OTHER ==
[~2018-10-22] VITALS: Ht 152.4 cm; Wt 99.5 kg
[~2018-10-22 11:25] MED LIST changes: -ALBU18HF INHALATION; +ALBU8.5H8 INH; +ASPI-817 PO; -ASPI81TA3 PO; +AZIT250T PO; +BENZ-6 PO; -CEPH-443 PO; -CIPR500T4 PO; -CITA20TA6 PO; -CYCL-319 PO; +DULO30CA47 PO; +FAMO20TA18 PO; -GLIM4TAB PO; +HYDR-4011 PO; -HYDR25TA6 PO; -IBUP-1542 PO; -IBUP800T25 PO; +INSU100V3 IJ; -LORA5SOL PO; +LOSA50TA14 PO; +METF100010 PO; -METF500T PO; -METO-53 PO; -NAPR-688 PO; -NIT4 SL; -NPH,100V SC; +NPH,100V SQ; -OMEG-135 PO; -OMEP20CA16 PO; -ONDA4TAB14 PO; -OXYC-279 PO; -RANI150T9 PO; +SIMV20TA PO; -SIMV20TA2 PO; -UDROBDM PO
[2018-10-22 11:39] VITALS: Ht 152.4 cm; Wt 99.5 kg
[2018-10-22] MEDS ORDERED: SOD CHLORIDE 0.9% 500 ML IV STA (11:54)
[2018-10-22] MEDS ORDERED: INSULIN REGULAR, HUMAN 100 UNIT/1 ML 3ML VIAL SC ONE (13:30)
[2018-10-22] MEDS ORDERED: SOD CHLORIDE 0.9% 1,000 ML IV ONE (13:30)
--- NOTE | 2018-10-22 13:30 | ERD ---
ER Documentation Chief Complaint Chief Complaint BS at home 499 BS here 305 HPI 48-year-old female brought to the emergency department by paramedics for evaluation of elevated blood sugar. Patient states that over the last few days, her blood sugars been elevated over 400. She has nonspecific discomfort all over her body but no specific chest pain abdominal pain or headache. She reports no fevers or chills. She reports no urinary symptoms. She reports that she has been having difficulty controlling her blood sugar despite taking her medication including her insulin. ROS All systems reviewed and are negative except as per history of present illness. Medications Home Meds Active Scripts Benzonatate* (Tessalon Perle*) 100 Mg Capsule, 100 MG PO TID PRN for COUGH, #20 CAP Prov:JOSÉ MIGUEL GLOVER MD 07/16/18 Azithromycin* (Zithromax*) 250 Mg Tablet, 250 MG PO .ZPACK DIRECTED, #6 TAB TAKE 500 MG (2 TABS) THE FIRST DAY THEN 250 MG (1 TAB) DAYS 2-5 Prov:JOSÉ MIGUEL GLOVER MD 07/16/18 Albuterol Sulfate* (Proair HFA*) 8.5 Gm Hfa.aer.ad, 2 PUFF INH Q6H PRN for WHEEZING AND SOB, #1 INHALER Prov:JOSÉ MIGUEL GLOVER MD 07/16/18 Hydrocodone/Acetaminophen ([place] 5-325 Tablet) 1 Each Tablet, 1 TAB PO Q6H PRN for PAIN, #7 TAB Prov:ZOYA MUNIZ PA-C 05/16/18 Reported Medications Duloxetine Hcl* (Duloxetine Hcl*) 30 Mg Capsule.dr, 30 MG PO DAILY, #30 CAP 01/03/18 Metformin Hcl* (Metformin Hcl*) 1,000 Mg Tablet, 1000 MG PO WITH BREAKFAST DINNE, #60 TAB 01/03/18 Losartan Potassium* (Losartan Potassium*) 50 Mg Tablet, 50 MG PO DAILY, TAB 01/03/18 Aspirin* (Aspirin* EC) 81 Mg Tablet.dr, 81 MG PO DAILY, TAB 01/03/18 Simvastatin* (Zocor*) 20 Mg Tablet, 20 MG PO QHS, #30 TAB 01/03/18 Famotidine* (Famotidine*) 20 Mg Tablet, 20 MG PO BID, #60 TAB 01/03/18 Insulin NPH Human Isophane (Humulin N) 100 Unit/1 Ml Vial, 10 UNIT SQ BID, VIAL 01/03/18 Insulin Regular, Human (Humulin R) 100 Unit/1 Ml Vial, 30 UNIT IJ BID, VIAL 01/03/18 Allergies Allergies: Coded Allergies: No Known Allergy (Unverified , 07/16/18) PMhx/Soc Medical and Surgical Hx: pt denies Surgical Hx History of Surgery: No Anesthesia Reaction: No Hx Neurological Disorder: No Hx Respiratory Disorders: No Hx Cardiac Disorders: Yes (htn) Hx Psychiatric Problems: No Hx Miscellaneous Medical Probl: Yes (htn, dm, HIGH CHOLESTEROL) Hx Alcohol Use: Yes (BEER,PATRON,OCCASIONAL) Hx Substance Use: No Hx Tobacco Use: Yes Smoking Status: Never smoker FmHx Noncontributory for chief complaint Physical Exam Vitals Vital Signs Date Temp Pulse Resp B/P (MAP) Pulse Ox O2 O2 Flow FiO2 Time Delivery Rate 10/22/18 99 25 141/69 98 Room Air 12:31 (93) 10/22/18 99.3 108 18 174/92 97 11:39 (119) Physical Exam GENERAL: The patient is well developed and appropriate for usual state of health in no apparent distress HEENT: Pupils equal, round, and reactive to light. EOMI. There is no scleral icterus. NECK: C-spine is soft and supple, there is no meningismus. There is no cervical lymphadenopathy. LUNGS: Clear to auscultation bilaterally. There are no rales, wheezes or rho nchi. HEART: Regular rate and rhythm, no murmurs, clicks, rubs or gallops. ABDOMEN: Soft, non-tender, non-distended. There are bowel sounds in all four quadrants. No rebound or guarding. EXTREMITIES: There is no peripheral cyanosis or edema. No focal swelling or erythema. NEURO: The patient moves all four extremities with 5/5 strength. Cranial nerves II - XII are intact. Normal gait. Alert and oriented SKIN: There is no apparent rash or petechiae. HEME/LYMPHATIC: There is no evidence of excessive bruising or lymphedema. PSYCHIATRIC: The patient does not appear anxious or depressed. Result Diagram: 10/22/18 1212 10/22/18 1212 Results 24 hrs Laboratory Tests Test 10/22/18 11:43 10/22/18 12:00 10/22/18 12:12 10/22/18 12:20 Bedside Glucose 305 mg/dL Urine Color YELLOW Urine Clarity SLIGHTLY CLOUDY Urine pH 6.0 Urine Specific 1.018 Peyton Urine Ketones TRACE mg/dL Urine Nitrite NEGATIVE mg/dL Urine Bilirubin NEGATIVE mg/dL Urine NEGATIVE mg/dL Urobilinogen Urine Leukocyte NEGATIVE Dejah/ul Esterase Urine Microscopic 3 /HPF RBC Urine Microscopic 3 /HPF WBC Urine Squamous FEW /HPF Epithelial Cells Urine Bacteria FEW /HPF Urine Hemoglobin NEGATIVE mg/dL Urine Glucose 2+ mg/dL Urine Total NEGATIVE mg/dl Protein White Blood Count 10.7 10^3/ul Red Blood Count 3.82 10^6/ul Hemoglobin 12.0 g/dl Hematocrit 35.1 % Mean Corpuscular 91.9 fl Volume Mean Corpuscular 31.4 pg Hemoglobin Mean Corpuscular 34.2 g/dl Hemoglobin Concen t Red Cell 13.5 % Distribution Width Platelet Count 185 10^3/UL Mean Platelet 13.1 fl Volume Immature 0.500 % Granulocytes % Neutrophils % 49.9 % Lymphocytes % 38.5 % Monocytes % 8.3 % Eosinophils % 2.1 % Basophils % 0.7 % Nucleated Red 0.0 /100WBC Blood Cells % Immature 0.050 10^3/ul Granulocytes # Neutrophils # 5.4 10^3/ul Lymphocytes # 4.1 10^3/ul Monocytes # 0.9 10^3/ul Eosinophils # 0.2 10^3/ul Basophils # 0.1 10^3/ul Nucleated Red 0.0 10^3/ul Blood Cells # Sodium Level 139 mmol/L Potassium Level 3.6 mmol/L Chloride Level 99 mmol/L Carbon Dioxide 32 mmol/L Level Anion Gap 8 Blood Urea 13 mg/dl Nitrogen Creatinine 0.42 mg/dl Est Glomerular > 60 mL/min Filtrat Rate mL/min Glucose Level 279 mg/dl Lactic Acid Level 3.7 mmol/L Calcium Level 10.3 mg/dl POC Venous 3.0 mmol/L Lactate Test 10/22/18 12:23 10/22/18 13:13 Bedside Glucose 309 mg/dL 323 mg/dL Current Medications Medications Dose Sig/Samir Start Time Status Last (Trade) Ordered Route PRN Stop Time Admin Dose Reason Admin Sodium 500 ml @ Q1H STAT 10/22/18 DC 10/22/18 Chloride 500 mls/hr IV 11:54 12:26 10/22/18 12:53 Sodium 1,000 ml @ Q1H ONCE 10/22/18 10/22/18 Chloride 1,000 mls/hr IV 13:30 13:09 10/22/18 14:29 Insulin 6 unit ONCE ONCE 10/22/18 10/22/18 Human SC 13:30 13:20 Regular 10/22/18 13:31 (Humulin R) Procedures/MDM Patient was taken to a room, seen and evaluated. Comfort measures were initiated. Diagnostic tests were ordered and reviewed. 3 LEAD RHYTHM STRIP: Normal sinus rhythm without ectopy RADIOLOGY: Reviewed with the radiologist REEVALUATION: Diagnostic tests were appreciated and discussed with the patient. She remained nontoxic appearing and I felt appropriate for outpatient care. MEDICAL DECISION MAKIN-year-old diabetic female presents hyperglycemic, but with no evidence of hyperosmolar or DKA state. The cause for her hyperglycemia is somewhat unclear, but she has no evidence of severe infection. I have noted her elevated lactate, but she has no urinary tract infection, no pneumonia, no other source of infection and appears to be clinically nontoxic. After fluids and blood sugar control, she continues to remain well-appearing and seems appropriate for outpatient care. Departure Diagnosis: Primary Impression: Hyperglycemia Condition: Stable Patient Instructions: Hyperglycemia (High Blood Sugar) Referrals: [facility] YOU HAVE RECEIVED A MEDICAL SCREENING EXAM AND THE RESULTS INDICATE THAT YOU DO NOT HAVE A CONDITION THAT REQUIRES URGENT TREATMENT IN THE EMERGENCY DEPARTMENT. FURTHER EVALUATION AND TREATMENT OF YOUR CONDITION CAN WAIT UNTIL YOU ARE SEEN IN YOUR DOCTORS OFFICE WITHIN THE NEXT 1-2 DAYS. IT IS YOUR RESPONSIBILITY TO MAKE AN APPOINTMENT FOR FOLOW-UP CARE. IF YOU HAVE A PRIMARY DOCTOR --you should call your primary doctor and schedule an appointment IF YOU DO NOT HAVE A PRIMARY DOCTOR YOU CAN CALL OUR PHYSICIAN REFERRAL HOTLINE AT IF YOU CAN NOT AFFORD TO SEE A PHYSICIAN YOU CAN CHOSE FROM THE FOLLOWING [facility] [address] [facility] [address] [facility]. [facility] [address] [facility] [address] [facility] [address] [facility] [facility] [address] [facility] Usmarcus se cruz hecho un examen mdico de control que le indica que no est en griselda condicin que requiera tratamiento urgente en el Departamento de Emergencia. Un estudio ms profundo y el tratamiento de ace condicin pueden esperar sin ningn riesgo hasta que usted sea atendida/o en el consultorio de ace mdico o griselda clnica. Es responsabilidad suya arreglar griselda niki para el seguimiento del ema. MANEJO DE CONDICIONES NO URGENTES EN EL FUTURO 1) Si usted tiene un mdico de atencin primaria: Usted debera llamar a ace mdico de atencin primaria antes de venir al departamento de emergencia. Despus de las horas de consultorio, ace doctor o ace asociado/a est disponible por telfono. El mdico o enfermero de francisco en el servicio telefnico puede asesorarle por ayesha medio para atender el problema, o ema contrario se puede programar griselda niki. 2) Si usted no tiene un mdico de atencin primaria: Llame al mdico o clnica de referencia que aparece abajo kami las horas de consultorio para hacer griselda niki para que le vean. CLINICAS: [facility] [phone] [facility] [phone] [facility] [phone] [facility]. [place] [id number] [phone] [place] [id number] [phone] [facility]. [phone] [address] Additional Instructions: Consulte a ace mdico para el seguimiento segn lo discutido. Lleve griselda copia de los resultados de ace prueba, si corresponde, a esta visita de seguimiento. Consulte a ace mdico o regrese aqu si frank sntomas no mejoran tony se esperaba. En cualquier momento, regrese al departamento de emergencias por cualquier cambio o empeoramiento en frank sntomas. ANKIT RAZO Oct 22, 2018 13:30
[2018-10-22] MEDS ORDERED: GUAI-637 PO (14:01)
[2018-10-22 14:10] VITALS: BP 140/82; PULSE 89; RESP 19
== END 2018-10-22 14:11 | disposition home or self-care (01) ==
LOC: E/R 11:25
DX: E11.65 Type 2 diabetes mellitus with hyperglycemia (principal); I10 Essential (primary) hypertension; Z79.4 Long term (current) use of insulin; Z79.82 Long term (current) use of aspirin; Z87.891 Personal history of nicotine dependence
CPT/HCPCS: 36415; 71045; 80048; 81001; 82962; 83605; 85025; 96372; J1815; J7030; J7040; Z7502; 81003

== ENCOUNTER 2018-11-01 11:45 | Emergency (ER) | payer OTHER ==
[~2018-11-01] VITALS: Ht 157.5 cm; Wt 98.3 kg
[~2018-11-01 11:45] MED LIST changes: +GUAI-637 PO
[2018-11-01 11:49] VITALS: Ht 157.5 cm; Wt 98.3 kg
[2018-11-01] MEDS ORDERED: SOD CHLORIDE 0.9% 1,000 ML IV STA (13:04)
[2018-11-01] MEDS ORDERED: morphine 4 MG/ML VIAL IV STA (13:04)
[2018-11-01] MEDS ORDERED: ONDANSETRON 4 MG INJ IV STA (13:04)
--- NOTE | 2018-11-01 13:56 | ERD ---
ER Documentation Chief Complaint Chief Complaint RT FLANK PAIN X 3 DAYS. HPI This is a 48-year-old female with a past medical history of insulin-dependent diabetes mellitus hypertension hyperlipidemia. She presents to the emergency department complaining of abdominal pain. She states the pain is present in the right lower quadrant and does radiate to the flank region. She indicates the pain has been intermittent for 3 days and has progressively worsened. She states that for the past several hours the pain has been persistent. She states the pain is exacerbated whenever she attempts to move. She is complaining of mild dysuria and urgency but no frequency. She denies any hematuria. She had no fevers or shaking or chills. She denies any similar pain in the past. She states the pain was not improved with Motrin. She has no shortness of breath. She denies a cough. She has felt nauseous but denies any hemoptysis hematemesis or melanotic stools. No diarrhea constipation. No recent hospitalizations or travel ROS All systems reviewed and are negative except as per history of present illness. Medications Home Meds Active Scripts Guaifenesin* (Robitussin*) 100 Mg/5 Ml Syrup, 100 MG PO Q4H PRN for COUGH, #100 ML Prov:ANKIT RAZO 10/22/18 Benzonatate* (Tessalon Perle*) 100 Mg Capsule, 100 MG PO TID PRN for COUGH, #20 CAP Prov:JOSÉ MIGUEL GLOVER MD 07/16/18 Albuterol Sulfate* (Proair HFA*) 8.5 Gm Hfa.aer.ad, 2 PUFF INH Q6H PRN for WHEEZING AND SOB, #1 INHALER Prov:JOSÉ MIGUEL GLOVER MD 07/16/18 Hydrocodone/Acetaminophen ([place] 5-325 Tablet) 1 Each Tablet, 1 TAB PO Q6H PRN for PAIN, #7 TAB Prov:ZOYA MUNIZ PA-C 05/16/18 Reported Medications Duloxetine Hcl* (Duloxetine Hcl*) 30 Mg Capsule.dr, 30 MG PO DAILY, #30 CAP 01/03/18 Metformin Hcl* (Metformin Hcl*) 1,000 Mg Tablet, 1000 MG PO WITH BREAKFAST DINNE, #60 TAB 01/03/18 Losartan Potassium* (Losartan Potassium*) 50 Mg Tablet, 50 MG PO DAILY, TAB 01/03/18 Aspirin* (Aspirin* EC) 81 Mg Tablet.dr, 81 MG PO DAILY, TAB 01/03/18 Simvastatin* (Zocor*) 20 Mg Tablet, 20 MG PO QHS, #30 TAB 01/03/18 Famotidine* (Famotidine*) 20 Mg Tablet, 20 MG PO BID, #60 TAB 01/03/18 Insulin NPH Human Isophane (Humulin N) 100 Unit/1 Ml Vial, 10 UNIT SQ BID, VIAL 01/03/18 Insulin Regular, Human (Humulin R) 100 Unit/1 Ml Vial, 30 UNIT IJ BID, VIAL 01/03/18 Discontinued Scripts Azithromycin* (Zithromax*) 250 Mg Tablet, 250 MG PO .JordinPACK DIRECTED, #6 TAB TAKE 500 MG (2 TABS) THE FIRST DAY THEN 250 MG (1 TAB) DAYS 2-5 Prov:JOSÉ MIGUEL GLOVER MD 07/16/18 Allergies Allergies: Coded Allergies: No Known Allergy (Unverified , 11/01/18) PMhx/Soc History of Surgery: No Anesthesia Reaction: No Hx Neurological Disorder: No Hx Respiratory Disorders: No Hx Cardiac Disorders: Yes (HTN, cholesterol) Hx Psychiatric Problems: No Hx Miscellaneous Medical Probl: Yes (DM) Hx Alcohol Use: Yes (BEER,PATRON,OCCASIONAL) Hx Substance Use: No Hx Tobacco Use: Yes (about 4 cigs/ day) Smoking Status: Current every day smoker Physical Exam Vitals Vital Signs Date Temp Pulse Resp B/P (MAP) Pulse Ox O2 O2 Flow FiO2 Time Delivery Rate 11/01/18 82 18 128/75 99 Room Air 14:30 (92) 11/01/18 98.3 103 18 166/77 99 11:49 (106) Physical Exam Constitutional:Well-developed. Well-nourished. HEENT:Normocephalic. Atraumatic.Pupils were equal round reactive to light. Moist mucous membranes.No tonsillar exudates. Neck: No nuchal rigidity. No lymphadenopathy. No posterior cervical spine tenderness or step-offs. Respiratory: Not using accessory muscles of respiration.Lungs were clear to auscultation bilaterally. No rhonchi. No rales. No wheezing. Cardiovascular: Regular rate regular rhythm.No murmurs. No rubs were appreciated.S1, S2 normal. Distal pulses are palpable 2+ bilaterally. GI: Abdomen was soft. Tenderness in the right lower quadrant. Right CVA tenderness. Psoas sign negative. Obturator sign negative.. Non Distended. No pulsatile abdominal masses or bruits. No rebound. No guarding. Bowel sounds were present and normal. Muscle skeletal: Full range of motion of both the upper and lower extremities bilaterally.Normal muscle tone.No assymetrical calf tenderness or swelling. No tenderness with palpation percussion over the thoracic or lumbar spinous processes. Straight leg test positive on the right. Straight leg test negative on the left Skin: No petechia, no purpura. No lesions on the palms or the soles of the feet. No maculopapular rash. NEURO: Patient was alert, awake, orientated x3.No facial droop. Gait observed and normal with no ataxia.Speech had regular rate and rhythm. No focal neurological deficits. Result Diagram: 11/01/18 1333 11/01/18 1333 Results 24 hrs Laboratory Tests Test 11/01/18 13:20 11/01/18 13:33 POC Beta HCG, Qualitative NEGATIVE White Blood Count 9.9 10^3/ul Red Blood Count 3.97 10^6/ul Hemoglobin 12.3 g/dl Hematocrit 37.7 % Mean Corpuscular Volume 95.0 fl Mean Corpuscular Hemoglobin 31.0 pg Mean Corpuscular Hemoglobin Concent 32.6 g/dl Red Cell Distribution Width 14.2 % Platelet Count 213 10^3/UL Mean Platelet Volume 12.9 fl Immature Granulocytes % 0.400 % Neutrophils % 46.0 % Lymphocytes % 42.2 % Monocytes % 7.2 % Eosinophils % 3.6 % Basophils % 0.6 % Nucleated Red Blood Cells % 0.0 /100WBC Immature Granulocytes # 0.040 10^3/ul Neutrophils # 4.5 10^3/ul Lymphocytes # 4.2 10^3/ul Monocytes # 0.7 10^3/ul Eosinophils # 0.4 10^3/ul Basophils # 0.1 10^3/ul Nucleated Red Blood Cells # 0.0 10^3/ul Prothrombin Time 11.9 Sec Prothrombin Time Ratio 0.9 INR International Normalized Ratio 0.87 Activated Partial Thromboplast Time 26.7 Sec Urine Color YELLOW Urine Clarity SLIGHTLY CLOUDY Urine pH 5.0 Urine Specific [place] 1.018 Urine Ketones NEGATIVE mg/dL Urine Nitrite NEGATIVE mg/dL Urine Bilirubin NEGATIVE mg/dL Urine Urobilinogen NEGATIVE mg/dL Urine Leukocyte Esterase NEGATIVE Dejah/ul Urine Microscopic RBC 3 /HPF Urine Microscopic WBC 1 /HPF Urine Squamous Epithelial Cells FEW /HPF Urine Bacteria FEW /HPF Urine Hemoglobin NEGATIVE mg/dL Urine Glucose 3+ mg/dL Urine Total Protein NEGATIVE mg/dl Sodium Level 141 mmol/L Potassium Level 3.8 mmol/L Chloride Level 102 mmol/L Carbon Dioxide Level 28 mmol/L Anion Gap 11 Blood Urea Nitrogen 15 mg/dl Creatinine 0.64 mg/dl Est Glomerular Filtrat Rate mL/min > 60 mL/min Glucose Level 221 mg/dl Calcium Level 9.6 mg/dl Total Bilirubin 0.0 mg/dl Direct Bilirubin 0.00 mg/dl Indirect Bilirubin 0.0 mg/dl Aspartate Amino Transf (AST/SGOT) 31 IU/L Alanine Aminotransferase (ALT/SGPT) 46 IU/L Alkaline Phosphatase 97 IU/L Total Protein 7.9 g/dl Albumin 4.6 g/dl Globulin 3.30 g/dl Albumin/Globulin Ratio 1.39 Amylase Level 74 U/L Lipase 88 U/L Current Medications Medications Dose Sig/Samir Start Time Status Last (Trade) Ordered Route PRN Stop Time Admin Dose Reason Admin Sodium 1,000 ml @ Q1H STAT 11/01/18 DC 11/01/18 Chloride 1,000 mls/hr IV 13:04 11/01/18 13:29 14:03 Morphine 4 mg ONCE STAT 11/01/18 DC 11/01/18 Sulfate IV 13:04 11/01/18 13:29 (morphine) 13:07 Ondansetron 4 mg ONCE STAT 11/01/18 DC 11/01/18 HCl (Zofran IV 13:04 11/01/18 13:29 Inj) 13:07 Iohexol 150 ml STK-MED 11/01/18 DC 11/01/18 (Omnipaque ONCE .ROUTE 14:29 11/01/18 14:56 300mg/ ml) 14:30 Sodium 100 ml @ ud STK-MED 11/01/18 DC 11/01/18 Chloride ONCE .ROUTE 14:29 11/01/18 14:56 14:30 Ketorolac 30 mg ONCE STAT 11/01/18 DC Tromethamine IV 14:54 11/01/18 (Toradol) 14:56 Procedures/MDM This patient presented to the emergency department with abdominal pain and was seen and evaluated by myself. My differential diagnosis included but was not limited to abdominal aortic aneurysm, appendicitis, pancreatitis, perforated peptic ulcer, perforated viscus, Boerhaaves syndrome or visceral pain such as diverticulitis, DKA, esophagitis, hepatitis or bowel obstruction. The patient was placed on a monitoring and evaluation advisor, continuous pulse oximetry, and IV access was established by nursing staff. The patient given intravenous morphine and Zofran for analgesic control. I do feel is necessary to obtain a CT scan of the patient's abdomen due to the severity of her pain. There is no evidence of appendicitis. No evidence of a small bowel obstruction or obstructive uropathy. The patient had no evidence of pyelonephritis. She did have a straight leg test that was positive. I indicated this could be sciatic pain that did radiate to the abdomen. However I did feel the patient would require an outpatient further evaluation with her primary care physician. No evidence of cauda equina syndrome. Patient pain completely resolved in the emergency department. The patient was discharged home in fair condition. They were instructed to return to the emergency department at any time if there was any worsening of their condition. The patient stated they would follow up with their PCP in the next 24-48 hours to initiate a suitable medication regimen under the care of their PCP as well as to allow their PCP to monitor any drug reactions. The patient was discharged home with prescriptions after they gave informed consent to the new medication. They were also fully informed by myself on the adverse effects and adverse drug interactions in order to provide adequate safeguards to prevent possible adverse reactions to medications. Departure Diagnosis: Primary Impression: Flank pain Additional Impression: Hyperglycemia without ketosis Condition: JOSÉ MIGUEL Brown MD Nov 01, 2018 13:56
[2018-11-01] MEDS ORDERED: IOHEXOL 300MG/ML 150 ML BTL ONE (14:29)
[2018-11-01] MEDS ORDERED: SOD CHLORIDE 0.9% 100 ML ONE (14:29)
[2018-11-01] MEDS ORDERED: KETOROLAC 30 MG INJ IV STA (14:54)
[2018-11-01] MEDS ORDERED: DOCU-144 PO (15:18)
[2018-11-01] MEDS ORDERED: HYDR-4011 PO (15:18)
[2018-11-01] MEDS ORDERED: IBUP800T48 PO (15:18)
[2018-11-01 15:56] VITALS: BP 136/75; PULSE 79; RESP 18
== END 2018-11-01 15:58 | disposition home or self-care (01) ==
LOC: E/R 11:45
DX: E11.65 Type 2 diabetes mellitus with hyperglycemia (principal); I10 Essential (primary) hypertension; F17.210 Nicotine dependence, cigarettes, uncomplicated; Z79.4 Long term (current) use of insulin; Z79.82 Long term (current) use of aspirin
CPT/HCPCS: 74177; 80053; 81001; 81025; 82150; 83690; 85025; 85610; 85730; 87086; 96361; 96374; 96375; J1885; J2270; J2405; J7030; Q9967; Z7502; Z7610; 81003

== ENCOUNTER 2019-03-21 08:51 | Emergency (ER) | payer OTHER ==
[~2019-03-21] VITALS: Ht 162.6 cm; Wt 96.5 kg
[~2019-03-21 08:51] MED LIST changes: -AZIT250T PO; +BENZ1LOZ52 MM; +D-ME473S2 PO; +DOCU-144 PO; +IBUP-1542 PO; +IBUP800T48 PO
[2019-03-21 08:59] VITALS: BP 146/72; PULSE 72; RESP 16; Ht 162.6 cm; Wt 96.5 kg
--- NOTE | 2019-03-21 09:31 | ERD ---
ER Documentation Chief Complaint Chief Complaint ST AND BODYACHES X 4 DAYS. HPI Patient is a 48-year-old female, past medical history of hypertension, DM type II, depression, presents the ER for concerns of sore throat, body aches, cough for the last 4 days. Patient denies any fevers or chills. Patient has no neck pain or neck stiffness. Patient denies any chest pain or shortness of breath, nausea, vomiting, vomiting or diarrhea. Patient denies taking medications for his symptoms. Patient denies any homicidal suicidal ideations. ROS All systems reviewed and are negative except as per history of present illness. Medications Home Meds Active Scripts Benzocaine/Menthol* (Cepacol* Sore Throat Lozenges) 1 Each Lozenge, 1 EACH MM q2h PRN for SORE THROAT, #20 LOZENGE Prov:JUAN DAVID ESCOTO PA-C 03/21/19 Dextromethorphan Hb-Promethazine Hcl* (Promethazine DM* Syrup) 473 Ml Syrup, 5 ML PO Q6 PRN for COUGH, #4 OZ Prov:JUAN DAVID ESCOTO PA-C 03/21/19 Ibuprofen* (Motrin*) 600 Mg Tab, 600 MG PO Q6, #30 TAB Prov:JUAN DAVID ESCOTO PA-C 03/21/19 Docusate Sodium* (Colace*) 100 Mg Capsule, 100 MG PO TID, #30 CAP Prov:JOSÉ MIGUEL GLOVER MD 11/01/18 Hydrocodone/Acetaminophen ([place] 5-325 Tablet) 1 Each Tablet, 1 TAB PO Q6H PRN for PAIN, #20 TAB Prov:JOSÉ MIGUEL GLOVER MD 11/01/18 Ibuprofen* (Motrin*) 800 Mg Tab, 800 MG PO Q6H PRN for PAIN AND OR ELEVATED TEMP, #30 TAB Prov:JOSÉ MIGUEL GLOVER MD 11/01/18 Guaifenesin* (Robitussin*) 100 Mg/5 Ml Syrup, 100 MG PO Q4H PRN for COUGH, #100 ML Prov:ANKIT RAZO 10/22/18 Benzonatate* (Tessalon Perle*) 100 Mg Capsule, 100 MG PO TID PRN for COUGH, #20 CAP Prov:JOSÉ MIGUEL GLOVER MD 07/16/18 Albuterol Sulfate* (Proair HFA*) 8.5 Gm Hfa.aer.ad, 2 PUFF INH Q6H PRN for WHEEZING AND SOB, #1 INHALER Prov:JOSÉ MIGUEL GLOVER MD 07/16/18 Hydrocodone/Acetaminophen ([place] 5-325 Tablet) 1 Each Tablet, 1 TAB PO Q6H PRN for PAIN, #7 TAB Prov:ZOYA MUNIZ PA-C 05/16/18 Reported Medications Duloxetine Hcl* (Duloxetine Hcl*) 30 Mg Capsule.dr, 30 MG PO DAILY, #30 CAP 01/03/18 Metformin Hcl* (Metformin Hcl*) 1,000 Mg Tablet, 1000 MG PO WITH BREAKFAST DINNE, #60 TAB 01/03/18 Losartan Potassium* (Losartan Potassium*) 50 Mg Tablet, 50 MG PO DAILY, TAB 01/03/18 Aspirin* (Aspirin* EC) 81 Mg Tablet.dr, 81 MG PO DAILY, TAB 01/03/18 Simvastatin* (Zocor*) 20 Mg Tablet, 20 MG PO QHS, #30 TAB 01/03/18 Famotidine* (Famotidine*) 20 Mg Tablet, 20 MG PO BID, #60 TAB 01/03/18 Insulin NPH Human Isophane (Humulin N) 100 Unit/1 Ml Vial, 10 UNIT SQ BID, VIAL 01/03/18 Insulin Regular, Human (Humulin R) 100 Unit/1 Ml Vial, 30 UNIT IJ BID, VIAL 01/03/18 Allergies Allergies: Coded Allergies: No Known Allergy (Unverified , 11/01/18) PMhx/Soc Medical and Surgical Hx: pt denies Surgical Hx History of Surgery: No Anesthesia Reaction: No Hx Neurological Disorder: No Hx Respiratory Disorders: No Hx Cardiac Disorders: Yes (HTN, cholesterol) Hx Psychiatric Problems: No Hx Miscellaneous Medical Probl: Yes (DM) Hx Alcohol Use: Yes (BEER,PATRON,OCCASIONAL) Hx Substance Use: No Hx Tobacco Use: Yes (about 4 cigs/ day) Smoking Status: Current every day smoker FmHx Family History: No diabetes Physical Exam Vitals Vital Signs Date Temp Pulse Resp B/P (MAP) Pulse Ox O2 O2 Flow FiO2 Time Delivery Rate 03/21/19 97.7 72 16 146/72 99 08:59 (96) Physical Exam GENERAL: Well-developed, well-nourished female. Appears in no acute distress. HEAD: Normocephalic, atraumatic. No deformities or ecchymosis. EYE: Pupils equal, round, and reactive to light. EOMs intact. No conjunctival erythema. No eye discharge. ENT: External ear without any masses or tenderness. Auditory canals clear bilaterally. TM visualized bilaterally, non-erythematous, non-bulging. Nasal mucosa pink with no discharge. Oropharynx is pink without any tonsillar erythema or exudates. No uvula deviation. No kissing tonsils. NECK: Supple. No meningismus. Normal ROM of the neck. LUNG: Clear to auscultation bilaterally. No rhonchi, wheezing, rales or coarse breath sounds. HEART: Regular rate and rhythm. No murmurs, rubs or gallops. EXTREMITIES: Equal pulses bilaterally. No peripheral clubbing, cyanosis or dontae a. No unilateral leg swelling. NEUROLOGIC: Alert and oriented to person, place and time. Moving all four extremities. 5/5 strength in all extremities. Normal speech. Steady gait. SKIN: Normal color. Warm and dry. No rashes or lesions. Procedures/MDM MEDICAL DECISION MAKING: This is a 48-year-old female who presents to the ER for concerns of cough, sore throat and body feet for the last 4 days. Vital signs were reviewed. Patient was afebrile. Patient was not hypoxic. ENT exam was normal. Lung exam was normal. Given these findings, the patients presentation is most consistent with viral URI. I have a much lower clinical concern for bacterial infections including pneumonia, meningitis, sinusitis, otitis externa, acute otitis media, strep pharyngitis, epiglottitis or peritonsillar abscess. Patient was nontoxic, [id number] g prior to discharge. PRESCRIPTIONS: Ibuprofen, Cepacol throat lozenges, promethazine cough syrup DISCHARGE: At this time, patient is stable for discharge and outpatient management. Supportive therapies such as OTC throat lozenges, salt water gurgles, popsicles and jello discussed. I have instructed the patient to follow-up with his/her primary care physician in 1-2 days. I have instructed the patient to promptly return to the ER for any new or worsening symptoms including increased pain, swelling, fever, nausea, vomiting, weakness or difficulty breathing. The patient and/or family expressed understanding of and agreement with this plan. All questions were answered. Home care instructions were provided. Disclaimer: Inadvertent spelling and grammatical errors are likely due to EHR/dictation software use and do not reflect on the overall quality of patient care. Also, please note that the electronic time recorded on this note does not necessarily reflect the actual time of the patient encounter. Departure Diagnosis: Primary Impression: URI (upper respiratory infection) URI type: unspecified URI Qualified Codes: J06.9 - Acute upper respiratory infection, unspecified Condition: Fair Patient Instructions: Preventing Common Respiratory Infections Referrals: [facility] YOU HAVE RECEIVED A MEDICAL SCREENING EXAM AND THE RESULTS INDICATE THAT YOU DO NOT HAVE A CONDITION THAT REQUIRES URGENT TREATMENT IN THE EMERGENCY DEPARTMENT. FURTHER EVALUATION AND TREATMENT OF YOUR CONDITION CAN WAIT UNTIL YOU ARE SEEN IN YOUR DOCTORS OFFICE WITHIN THE NEXT 1-2 DAYS. IT IS YOUR RESPONSIBILITY TO MAKE AN APPOINTMENT FOR FOLOW-UP CARE. IF YOU HAVE A PRIMARY DOCTOR --you should call your primary doctor and schedule an appointment IF YOU DO NOT HAVE A PRIMARY DOCTOR YOU CAN CALL OUR PHYSICIAN REFERRAL HOTLINE AT IF YOU CAN NOT AFFORD TO SEE A PHYSICIAN YOU CAN CHOSE FROM THE FOLLOWING [facility] [address] [facility]. [facility] [address] [facility]. [facility] [address] [facility] [facility] [address] [facility] [address] [facility]. [facility]. [address] [facility]. [facility] YOU HAVE RECEIVED A MEDICAL SCREENING EXAM AND THE RESULTS INDICATE THAT YOU DO NOT HAVE A CONDITION THAT REQUIRES URGENT TREATMENT IN THE EMERGENCY DEPARTMENT. FURTHER EVALUATION AND TREATMENT OF YOUR CONDITION CAN WAIT UNTIL YOU ARE SEEN IN YOUR DOCTORS OFFICE WITHIN THE NEXT 1-2 DAYS. IT IS YOUR RESPONSIBILITY TO MAKE AN APPOINTMENT FOR FOLOW-UP CARE. IF YOU HAVE A PRIMARY DOCTOR --you should call your primary doctor and schedule and appointment IF YOU DO NOT HAVE A PRIMARY DOCTOR YOU CAN CALL OUR PHYSICIAN REFERRAL HOTLINE AT . IF YOU CAN NOT AFFORD TO SEE A PHYSICIAN YOU CAN CHOSE FROM THE FOLLOWING [facility]: [facility] [address] [place] [address] [facility] [address] [place] [address] [facility] [address] [place] [address] Additional Instructions: Call your primary care doctor TOMORROW for an appointment during the next 1-2 days.See the doctor sooner or return here if your condition worsens before your appointment time. JUAN DAVID ESCOTO PA-C Mar 21, 2019 09:31
== END 2019-03-21 09:32 | disposition home or self-care (01) ==
LOC: FTE 08:51
DX: J06.9 Acute upper respiratory infection, unspecified (principal); I10 Essential (primary) hypertension; E11.9 Type 2 diabetes mellitus without complications; F17.210 Nicotine dependence, cigarettes, uncomplicated; Z79.4 Long term (current) use of insulin; Z79.82 Long term (current) use of aspirin
CPT/HCPCS: 99283